=== PATIENT | male | born 1945 | race Caucasian/White ===

== ENCOUNTER 2017-01-13 16:12 | Inpatient (IN) ==
--- NOTE | 2017-01-13 17:05 | EKG Report ---
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
[2017-01-13] MEDS ORDERED: ALUM/MAG/SIMETH/LIDO VISC 1:1 30 ML BOTTLE PO STA (17:06)
[2017-01-13] MEDS ORDERED: NITROGLYCERIN 2% OINT 1 INCH/GM PACK TOP STA (17:06)
[2017-01-13] MEDS ORDERED: ONDANSETRON 4 MG/2 ML VIAL IV STA (17:06)
[2017-01-13] MEDS ORDERED: ASPIRIN 325 MG TABLET PO STA (17:06)
[2017-01-13] MEDS ORDERED: SODIUM CHLORIDE 0.9% 500 ML IV STA (17:06)
[2017-01-13 17:22] LABS: Basophils % 0.3 % (0.0-0.8); Eosinophils % 0.6 % (0.00-10.9); Hematocrit 48.5 VOL% (42.0-52.0); Hemoglobin 16.3 GM/DL (14.0-18.0); Immature Granulocytes % 0.6 %; Immature Granulocytes Absolute 0.02 #; Lymphocytes # 1.1 10*3/uL (1.4-4.0); Mean Corpuscular HGB Conc 33.6 GM/DL (32-36); Mean Corpuscular Hemoglobin 29 PG (27-34); Mean Corpuscular Volume 85.5 FL (87-102); Mean Platelet Volume 10.9 FL (9.6-12.0); Monocytes # 0.5 10*3/uL (0.11-0.8); Monocytes % 12.7 % (1.7-12.7); Neutrophils % 55.8 % (38.7-73.9); Platelet Count 63 T/CUMM (130-400); Red Blood Count 5.67 MC/CUMM (3.8-5.5); Red Cell Distribution Width 14.7 % (9.3-17.3); White Blood Count 3.5 T/CUMM (4-12)
[2017-01-13 17:27] LABS: INR 1.1; PT Patient Result 11.7 SECS
[2017-01-13 17:30] LABS: Albumin 3.2 G/DL (3.4-5.0); Bilirubin,Total 0.6 MG/DL (0.2-1.0); Calcium 8.1 MG/DL (8.5-10.1); Magnesium 2.2 MG/DL (1.8-2.4); Osmolality,Calculated 263.2 MOS/KG (273-304); Potassium 3.7 MMOL/L (3.5-5.1); Total Protein 7.1 G/DL (6.4-8.3)
--- NOTE | 2017-01-13 17:59 | CT Report ---
CT head/brain wo con INDICATION: Unsteady gait The total DLP is 970 mGy*cm. COMPARISON: Noncontrast CT head dated , difficulty walking 03/17/2015 Technique: Serial axial tomographic images of the brain were obtained without the use of intravenous contrast. Dose reduction: This CT exam was performed using one or more of the following dose reduction techniques: Automated exposure control, automated adjustment of the mA and/or KV according to patient size, or use of iterative reconstruction technique. Findings: Mild generalized atrophy is noted with mild prominence of the sulci and cortical volume loss. Periventricular white matter hypodensity changes are noted bilaterally which do not demonstrate mass effect and are nonspecific but favored to represent sequela of chronic microvascular ischemia. There is no evidence of vascular territory infarct or acute intracranial hemorrhage. The carrion-white matter differentiation is generally maintained. There is no hydrocephalus. The basilar cisterns are patent. There is minimal bilateral maxillary and ethmoidal sinus mucosal thickening. Otherwise, the visualized paranasal sinuses, mastoid air cells and middle ear cavities are predominantly clear. The included orbits and their contents appear within normal limits. The visualized osseous structures and overlying soft tissues of the skull and face demonstrate no acute abnormality. IMPRESSION: No acute intracranial abnormality. Nodules atrophy and findings suggestive of sequela of chronic microvascular ischemia. PROCEDURE INTERPRETED AT [facility] DEPARTMENT OF RADIOLOGY Final Report Signed by: Shon Alexandra
[2017-01-13 18:00] LABS: Band Neutrophils 6 % (0-10); Eosinophils 1 % (0-10); Lymphocytes 27 % (20-55); Metamyelocytes 1 %; Segmented Neutrophils 56 % (50-85); Total Cells Counted 100
--- NOTE | 2017-01-13 18:00 | XRay Report ---
Exam: XR chest 1V portable Indication: Cardiomegaly, chest pain Comparison study: Prior chest radiographs 02/16/2016 Findings: Cardiac silhouette is enlarged, similar to prior. Left chest pacemaker device and wire leads. Similar positions. There are prominent perihilar and left upper/lower lobe interstitial opacities which are not significantly changed from prior may represent underlying scarring. Opacities within the left perihilar region and left lung base also appears similar to prior may represent pulmonary fibrosis/atelectasis/scarring changes. Superimposed focal infiltrates could easily be obscured. The heart, mediastinum and bony structures are stable from prior. Impression: Cardiomegaly with suggestion of chronic perihilar and left basilar interstitial opacities may represent underlying pulmonary fibrosis changes versus atelectasis/scarring. Superimposed infectious/inflammatory infiltrates are difficult to exclude. PROCEDURE INTERPRETED AT [facility] DEPARTMENT OF RADIOLOGY Final Report Signed by: Shon Alexandra
[2017-01-13 18:01] LABS: Platelet Estimate Decreased
[2017-01-13 18:02] LABS: Polychromasia Few
[2017-01-13] MEDS ORDERED: NITROGLYCERIN 2% OINT 1 INCH/GM PACK TOP ONE (18:07)
[2017-01-13] MEDS ORDERED: ONDANSETRON 4 MG/2 ML VIAL ONE (18:07)
[2017-01-13] MEDS ORDERED: ASPIRIN 325 MG TABLET ONE (18:07)
[2017-01-13] MEDS ORDERED: ALUM/MAG/SIMETH/LIDO VISC 1:1 30 ML BOTTLE PO ONE (18:08)
--- NOTE | 2017-01-13 18:33 | Emergency Department Note ---
Griselda Conte Hilary, am scribing for, and in the presence of, Jameel Baron MD 17:17. Loraine Conte Charles R, MD, personally performed the services described in this documentation, ascribed by Tia Villalobos in my presence, and it is both accurate and complete [id number] . Arrival - Arrival Chief Complaint: Weakness ED Nursing Triage Note: WEAKNESS AND FATIGUE ONSET THIS PAST TUESDAY, Mode of Arrival: Stretcher Limitations: No Limitations Source: Patient, RN Notes Reviewed Time Seen by Provider: 01/13/17 16:43 - History of Present Illness HPI Narrative: Pt is a 71y/o white male brought into the ED via EMS with c/o "not feeling well " which onset 4 days ago. Pt states that 3 days ago his chest started to hurt and then radiated down to his left arm and it continued to happen 10-15 times. Since that episode pt states he has been feeling weak and has a hard time walking, he states "i want to go this way but my body starts to go that way and i think im going to fall". PTs son is in the room and states that he will be in the middle of a sentence, forget what he is saying and the son will remind him, and then he will continue on with that sentence. His son also states that he hasnt eaten since tuesday. Pt denies diaphoresis, nausea or SOB when the pain came on and he states right now he is pain free. Onset (ago): day(s) Allergies/Adverse Reactions: Allergies Allergy/AdvReac Type Severity Reaction Status Date / Time No Known Allergies Allergy Verified 01/13/17 16:20 Home Medications: Home Medications Medication Instructions Recorded Confirmed Type Aspirin [Ecotrin] 81 mg PO DAILY 03/17/15 03/17/15 History Atorvastatin Calcium 40 mg PO BEDTIME 03/17/15 03/17/15 History Ferrous Sulfate 325 mg PO BID 03/17/15 03/17/15 History Mycophenolate Mofetil Cap 500 mg PO TID 03/17/15 03/17/15 History [Cellcept] Omeprazole [Prilosec] 20 mg PO BEDTIME 03/17/15 03/17/15 History Sirolimus 1 mg PO DAILY 03/17/15 03/17/15 History Tamsulosin HCl 0.4 mg PO BID 03/17/15 03/17/15 History Venlafaxine HCl 75 mg PO BEDTIME 03/17/15 03/17/15 History Fenofibrate [Tricor] 145 mg PO DAILY #30 tablet 03/20/15 Rx Insulin Aspart [NovoLOG FlexPen] 10 unit SUBCUT TID #100 units 03/20/15 Rx Insulin Glargine [Lantus] 50 unit SUBCUT BEDTIME #100 unit 03/20/15 Rx Magnesium Oxide 500 mg PO DAILY #0 03/20/15 03/17/15 Rx predniSONE TAB [PredniSONE] 5 mg PO DAILY #3 tablet 03/20/15 Rx Review of System - Review of System 12 point system: reviewed and no additional remarkable complaints except as stated - Review of System Constitutional: Absent: diaphoresis, fever Respiratory: Absent: cough Cardiovascular: Present: chest pain Gastrointestinal: Absent: abdominal pain, nausea Musculoskeletal: Present: arm pain (left arm pain) Neurological: Present: weakness, confusion, abnormal gait (feel off balance) Medical,Surgical,& Family Hx - Medical History Cardio: History of: Hypertension, PR Psychological: History of: Depression HEENT: History of: Eye Problem, Glaucoma Endocrine: History of: Diabetes Mellitus (IDDM) Respiratory: History of: Obstructive Sleep Apnea, Respiratory Problems ( PULMONARY FIBROSIS) Renal: History of: Renal Failure Gastrointestinal: History of: GERD Musculoskeletal: History of: Back/Neck Problems (spinal stenosis) Other: History of: Cancer (SKIN CANCERS) - Surgical History Cardiac Surgeries: Sugical HX of: Cardiac Catheterization (STENTS PLACED 2006) Thoracic Surgeries: Surgical HX of;: Lobectomy Neurologic Surgeries: Patient denies: Neurologic Surgery HEENT Surgeries: Patient denies: Tonsilectomy & Adenoidectomy Abdominal Surgeries: Surgical HX of: Colonoscopy Patient denies: Appendectomy, Cholecystectomy Reproductive Surgeries: Patient denies;: Breast Surgery, Vasectomy - Family History Family History: Reports;: Family Diabetes, Family Heart Disease (father, brother , sister), Family Hypertension Denies;: Family Cancer, Family Stroke - Social History Smoking Status: Former smoker Exam Vital Signs: Vital Signs Temperature 98.2 F 01/13/17 16:13 Pulse Rate 96 H 01/13/17 16:13 Respiratory Rate 18 01/13/17 16:13 Blood Pressure 142/90 01/13/17 16:13 O2 Sat by Pulse Oximetry 99 01/13/17 16:13 - General General appearance: alert, in no apparent distress, other (Dishoveled, dirty looking) - Head Head exam: Present: atraumatic, normocephalic - Eye Eye exam: Present: normal appearance, PERRL, EOMI - ENT ENT exam: Present: mucous membranes moist, TM's normal bilaterally. Absent: mucous membranes dry - Neck Neck exam: Present: full ROM, trachea midline. Absent: tenderness - Chest Chest inspection: Present: symmetric chest wall rise. Absent: tenderness - Respiratory Respiratory exam: Present: normal lung sounds bilaterally. Absent: respiratory distress - Cardiovascular Cardiovascular exam: Present: regular rate, normal rhythm, normal heart sounds. Absent: murmur, rubs, gallop - Abdominal Exam Abdominal exam: Present: soft, normal bowel sounds. Absent: distention, tenderness - Extremities Exam Extremities exam: Present: full ROM. Absent: tenderness - Back Exam Back exam: Present: full ROM. Absent: tenderness - Neurological Exam Neurological exam: Present: alert, oriented X3, CN II-XII intact. Absent: motor sensory deficit - Psychiatric Psychiatric exam: Present: normal mood, flat affect (flat and blunt affect) - Skin Skin exam: Present: warm, dry, intact, normal color. Absent: rash Course - Consultations Consultation #1: Hospitalist will admit patient Time: 18:29 Results - Labs CBC & BMP: 01/13/17 16:49 01/13/17 16:49 Lab Results: I have reviewed the patients labs Critical Care Time Critical Care Time: Yes Total Critical Care Time: 60 Disposition Clinical Impression: Near syncope, Nausea vomiting and diarrhea, Thrombocytopenia, Generalized weakness, Unsteady gait, Elevated troponin, Atypical chest pain, Hyponatremia Case discussed with: patient, patient's family Condition: Guarded Time of Disposition: 18:32
--- NOTE | 2017-01-13 18:35 | Hospitalist History & Physical ---
Assessment and Plan (1) Diabetes mellitus, insulin dependent (IDDM), uncontrolled Status: Acute Assessment and plan: We will obtain HGA1C, start accuchecks with ss coverage, and consult hematology nurse educator. Current Visit: No Qualifiers: Diabetes mellitus complication status: with unspecified complications Qualified Code(s): E10.8 - Type 1 diabetes mellitus with unspecified complications; E10.65 - Type 1 diabetes mellitus with hyperglycemia (2) Near syncope Status: Acute Assessment and plan: Will obtain MRI brain in AM. Consult neurology; complete full syncope work-up. Current Visit: Yes (3) Elevated troponin Status: Acute Assessment and plan: Will obtain serial cardiac enzymes ; if positive; will consult cardiology. Current Visit: Yes (4) Hyponatremia Status: Acute Assessment and plan: We will carefully correct; obtain serial sodium levels. Current Visit: Yes History of Present Illness Chief complaint: altered mental status History of present illness: This is a very unfortunate 71 year old male that presented to the ED this afternoon for evaluation of altered mental status and chest pain. He has a rather impressive medical history significant for hypertension, myocardial infarction, pulmonary fibrosis, depression, insulin-dependent diabetes mellitus , glaucoma, obstructive sleep apnea, skin cancer, and skin cancer. He has a surgical history of lung transplantation. he was brought to the ED this afternoon by his family, who reports an acute change in his mental status. The reported the onset of symptoms on Tuesday; when he had multiple episodes of diarrhea. On Tuesday; he was reported to have a decrease in appetite and changes in both his gait and mental status. In addition, he started experiencing chest pain with radiation to his left arm at that time. His symptoms became very severe this morning. He was grossly confused and incontinent of both bowel and bladder. They became alarmed and brought him to the ED for further evaluation. At the time of ED presentation, he was found to be altered and disheveled. Labs were obtained. His sodium was grossly abnormal at 127. His renal function was less than favorable with a BUN of 30 and creatinine of 1.90. His WBC's were noted at 3.5 and his platelets were 63. His troponin was mildly elevated at 0.139 and BNP was noted at 597. CT Head revealed no acute intracranial processes. Chest radiograph revealed cardiomegaly and possible opacities/ infiltrates/pulmonary scarring. After brief discussion with both Dr. Baron and Dr. Solano, the patient will be admitted to the hospitalist services. He will be admitted to critical care. We will consult neurology to assist. Home Medications Medication Instructions Recorded Confirmed Type Aspirin [Ecotrin] 81 mg PO QAM 03/17/15 01/13/17 History Atorvastatin Calcium 40 mg PO BEDTIME 03/17/15 01/13/17 History Ferrous Sulfate 325 mg PO BID 03/17/15 01/13/17 History Mycophenolate Mofetil Cap 500 mg PO TID 03/17/15 01/13/17 History [Cellcept] Sirolimus 1 mg PO BID 03/17/15 01/13/17 History Venlafaxine HCl 75 mg PO BEDTIME 03/17/15 01/13/17 History Insulin Glargine [Lantus] 50 unit SUBCUT BEDTIME #100 unit 03/20/15 01/13/17 Rx Insulin Aspart [NovoLOG FlexPen] 10 unit SUBCUT TID 01/13/17 01/13/17 History Magnesium Oxide 1,000 mg PO BID 01/13/17 01/13/17 History predniSONE TAB [PredniSONE] 5 mg PO QAM 01/13/17 01/13/17 History Allergies Allergy/AdvReac Type Severity Reaction Status Date / Time No Known Allergies Allergy Verified 01/13/17 16:20 Medical,Surgical,& Family Hx - Medical History Cardio: History of: Hypertension, [place] Psychological: History of: Depression HEENT: History of: Eye Problem, Glaucoma Endocrine: History of: Diabetes Mellitus (IDDM) Respiratory: History of: Obstructive Sleep Apnea, Respiratory Problems ( PULMONARY FIBROSIS) Renal: History of: Renal Failure Gastrointestinal: History of: GERD Musculoskeletal: History of: Back/Neck Problems (spinal stenosis) Other: History of: Cancer (SKIN CANCERS) - Surgical History Cardiac Surgeries: Sugical HX of: Cardiac Catheterization (STENTS PLACED 2006) Thoracic Surgeries: Surgical HX of;: Lobectomy Neurologic Surgeries: Patient denies: Neurologic Surgery HEENT Surgeries: Patient denies: Tonsilectomy & Adenoidectomy Abdominal Surgeries: Surgical HX of: Colonoscopy Patient denies: Appendectomy, Cholecystectomy Reproductive Surgeries: Patient denies;: Breast Surgery, Vasectomy - Family History Family History: Reports;: Family Diabetes, Family Heart Disease (father, brother , sister), Family Hypertension Denies;: Family Cancer, Family Stroke - Social History Smoking Status: Former smoker Have you smoked in the last 12 months: No Frequency of Alcohol Use: None Type of Drug Use: None Marital Status: Single Lives With:: Spouse Functional capacity: independent ambulation ROS unobtainable: due to mental status Exam - Constitutional Vitals: Period Temp Pulse Resp BP Sys/[place] Pulse Ox Last 24 Hr 98.2 F 96 18 142/90 99 General appearance: normal weight, disheveled - Head Head exam: Present: normal inspection, normocephalic, atraumatic - Eye Eye exam: Present: EOMI. Absent: conjunctival injection, nystagmus Pupils: Present: MARYBETH, normal accommodation - ENT ENT exam: Present: normal exam, normal external ear exam, normal oropharynx - Neck Neck exam: Present: normal inspection - Respiratory Respiratory exam: Present: clear to auscultation bilaterally. Absent: rales, rhonchi, stridor, wheezes - Cardiovascular Cardiovascular exam: Present: regular rate and rhythm. Absent: carotid bruit, diastolic murmur, gallop, rubs, tachycardia - GI/Abdominal GI/Abdominal exam: Present: normal bowel sounds, soft - Extremities Exam Extremities exam: Present: normal inspection, normal capillary refill, full ROM. Absent: edema - Back Exam Back exam: Present: normal inspection - Neurological Exam Neurological exam: Present: alert, altered - Psychiatric Psychiatric exam: Present: normal affect, normal mood - Skin Skin exam: Present: warm, dry Results - Labs CBC & BMP: 01/13/17 16:49 01/13/17 16:49 Lab Results: I have reviewed the past 24 hour labs Quality Measures - VTE Deep Vein Thrombosis/Pulmonary Embolism Present on Admission: No
[2017-01-13] MEDS ORDERED: PANTOPRAZOLE 40 MG VIAL IV SCH (20:53)
[2017-01-13] MEDS ORDERED: ALBUTEROL 2.5 MG/3 ML NEB RESP TX PRN (20:53)
[2017-01-13] MEDS ORDERED: ACETAMINOPHEN 325 MG TABLET PO PRN (20:53)
[2017-01-13] MEDS ORDERED: ONDANSETRON 4 MG/2 ML VIAL IV PRN (20:53)
[2017-01-13] MEDS: SODIUM CHLORIDE 0.9% 1,000 ML IV SCH (21:24)
[2017-01-13] MEDS ORDERED: DEXTROSE 50% 25 GM/50 ML VIAL IV PRN (21:35)
[2017-01-13] MEDS ORDERED: GLUCAGON 1 MG VIAL IM PRN (21:35)
[2017-01-13 21:55] LABS: Magnesium 2.2 MG/DL (1.8-2.4)
[2017-01-13 21:57] LABS: Ammonia < 10 UMOL/L (11-32)
[2017-01-13] MEDS ORDERED: INSULIN REGULAR 100 UNIT/ML SUBCUT ONE (21:57)
[2017-01-14 01:22] LABS: Albumin 2.7 G/DL (3.4-5.0); Bilirubin,Total 0.4 MG/DL (0.2-1.0); Calcium 7.2 MG/DL (8.5-10.1); Magnesium 2.1 MG/DL (1.8-2.4); Osmolality,Calculated 277.4 MOS/KG (273-304); Potassium 3.9 MMOL/L (3.5-5.1); Risk Ratio 9.58; Thyroid Stimulating Hormone 1.98 uIU/ml (0.358-3.74); Total Protein 5.9 G/DL (6.4-8.3); VLDL CHOLESTEROL 66.4 MG/DL
[2017-01-14 01:25] LABS: Eosinophils % 1.3 % (0.00-10.9); Hematocrit 45.2 VOL% (42.0-52.0); Hemoglobin 14.8 GM/DL (14.0-18.0); Immature Granulocytes % 0.9 %; Immature Granulocytes Absolute 0.02 #; Lymphocytes # 0.9 10*3/uL (1.4-4.0); Lymphocytes % 38.9 % (21.2-54.2); Mean Corpuscular HGB Conc 32.7 GM/DL (32-36); Mean Corpuscular Hemoglobin 29 PG (27-34); Mean Corpuscular Volume 87.1 FL (87-102); Mean Platelet Volume 10.8 FL (9.6-12.0); Monocytes # 0.3 10*3/uL (0.11-0.8); Monocytes % 13.5 % (1.7-12.7); Neutrophils % 45.4 % (38.7-73.9); Platelet Count 61 T/CUMM (130-400); Red Blood Count 5.19 MC/CUMM (3.8-5.5); Red Cell Distribution Width 14.7 % (9.3-17.3); White Blood Count 2.3 T/CUMM (4-12)
[2017-01-14 03:48] LABS: Band Neutrophils 6 % (0-10); Eosinophils 2 % (0-10); Hypochromasia Slight; Lymphocytes 32 % (20-55); Metamyelocytes 6 %; Myelocytes 2 %; Ovalocytes Few; Platelet Estimate Decreased; Segmented Neutrophils 34 % (50-85); Total Cells Counted 100
[2017-01-14] MEDS: SODIUM CHLORIDE 0.9% 1,000 ML IV SCH ×2 (05:28→13:55)
[2017-01-14] MEDS: INSULIN REGULAR 100 UNIT/ML SUBCUT SCH ×4 (08:56→21:00)
--- NOTE | 2017-01-14 12:17 | Hospitalist Progress Note ---
Assessment and Plan (1) Nausea vomiting and diarrhea Status: Acute Assessment and plan: The patient's nausea vomiting and diarrhea have resolved. The hyponatremia which led to altered mental status has improved. The patient is ready for transfer to the floor. Will restart the patient's immunosuppressant medications and recheck electrolytes and CBC in the morning. Current Visit: Yes (2) Status post lung transplantation Status: Acute Current Visit: No (3) Generalized weakness Status: Acute Current Visit: Yes (4) Hyponatremia Status: Acute Current Visit: Yes Hospitalist: Subjective Interval history: The patient is awake alert and oriented. He says his previous confusion has resolved. Electrolytes are improved after hydration with normal saline. The patient is ready for transfer to the floor. Exam - Constitutional Vitals: Period Temp Pulse Resp BP Sys/[place] Pulse Ox Last 24 Hr 97.9 F-99.3 F 81-101 14-26 119-161/69-95 90-100 General appearance: no acute distress - Respiratory Respiratory exam: Present: clear to auscultation bilaterally - Cardiovascular Cardiovascular exam: Present: regular rate and rhythm - GI/Abdominal GI/Abdominal exam: Present: normal bowel sounds Results - Labs CBC & BMP: 01/14/17 00:38 01/14/17 00:38 Lab Results: I have reviewed the past 24 hour labs Quality Measures - VTE Deep Vein Thrombosis/Pulmonary Embolism Present on Admission: No
[2017-01-14] MEDS: ASPIRIN EC 81 MG TABLET PO SCH (16:24)
[2017-01-14] MEDS: predniSONE 5 MG TABLET PO SCH (16:25)
[2017-01-14] MEDS: MYCOPHENOLATE MOFETIL 250 MG CAPSULE PO SCH ×2 (16:25→20:59)
[2017-01-14] MEDS: ATORVASTATIN 40 MG TABLET PO SCH (20:58)
[2017-01-15] MEDS: SODIUM CHLORIDE 0.9% 1,000 ML IV SCH ×4 (00:14→13:19)
--- NOTE | 2017-01-15 00:16 | ECHO Report ---
Jameel Pittman Exam Date: 01/14/2017 08:56 Referring Physician: Technologist: Rianna Rose RDCS Age: 71 Ht (in): 70 Wt (lb): 198 Gender: M Exam Location: [facility] Echo Indications: Altered mental status, IDDM, Chest pain, unspecified, Elevated troponin, Hyponatremia, Essential (primary) hypertension, ROCK, CAD with previous stents, Presence of cardiac pacemaker BP: 122 / 76 HR: 82 Rhythm: Sinus Technical Quality: IMPRESSIONS Left ventricular ejection fraction is estimated at 40-45 %. Mild concentric left ventricular hypertrophy with mild diastolic dysfunction. Mild bilateral atrial enlargement. Mildly thickened mitral valve with mild mitral valve regurgitation. Mild aortic valve sclerosis without stenosis. Mild tricuspid valve regurgitation. MEASUREMENTS (Male / Female) Normal Values 2D ECHO LV Diastolic Diameter PLAX 5.1 cm 4.2 - 5.9 / 3.9 - 5.3 cm LV Systolic Diameter PLAX 4.0 cm LV Fractional Shortening PLAX 22.3 % IVS Diastolic Thickness 1.3 cm 0.6 - 1.0 / 0.6 - 0.9 cm LVPW Diastolic Thickness 1.3 cm 0.6 - 1.0 / 0.6 - 0.9 cm RV Internal Dim ED PLAX 3.1 cm Aortic Root Diameter 3.2 cm LA Systolic Diameter LX 4.1 cm 3.0 - 4.0 / 2.7 - 3.8 cm DOPPLER TR Peak Velocity 307.0 cm/s TR Peak Gradient 37.7 mmHg FINDINGS Left Ventricle Normal left ventricular cavity size. Mild concentric left ventricular hypertrophy with mild diastolic dysfunction. Left ventricular ejection fraction is estimated at 40-45 %. Right Ventricle Normal right ventricular size. Catheter/pacemaker wire visualized in the right ventricle. Right Atrium Mildly increased right atrial size. Catheter/pacemaker wire in the right atrial cavity. Left Atrium Mildly increased left atrial size. Mitral Valve Mildly thickened mitral valve with mild mitral valve regurgitation. Aortic Valve Mild aortic valve sclerosis without stenosis. Tricuspid Valve Morphologically normal tricuspid valve. Mild tricuspid valve regurgitation. Tricuspid regurgitation velocities suggest a PAP of 48 mmHg. Pulmonic Valve Morphologically normal pulmonic valve without significant stenosis. There is no pulmonic regurgitation. Pericardium Normal pericardium without effusion. Aorta Normal ascending aorta dimension. Alfredo Trivedi (Electronically Signed) Final Date: 15 Jan 2017 00:15
[2017-01-15 09:21] LABS: Calcium 7.1 MG/DL (8.5-10.1); Magnesium 2.1 MG/DL (1.8-2.4); Osmolality,Calculated 279.8 MOS/KG (273-304); Potassium 3.4 MMOL/L (3.5-5.1)
[2017-01-15] MEDS: INSULIN REGULAR 100 UNIT/ML SUBCUT SCH ×4 (09:33→21:22)
[2017-01-15] MEDS: ASPIRIN EC 81 MG TABLET PO SCH (09:34)
[2017-01-15] MEDS: predniSONE 5 MG TABLET PO SCH (09:34)
[2017-01-15] MEDS: MYCOPHENOLATE MOFETIL 250 MG CAPSULE PO SCH ×3 (09:34→21:18)
--- NOTE | 2017-01-15 10:59 | XRay Report ---
Referring Physician: Beck Porter MD Exam: XR chest 1V portable Date: January 15, 2017 at 10:14 AM Reason: Fever Comparison: Chest one view portable January 13, 2017 Findings: The cardiac silhouette is again enlarged, and a cardiac pacing device is in place. There are scattered opacities throughout both lungs, mainly on the left. This likely represents pneumonia, pulmonary edema and possibly scarring. No pneumothorax is identified, but there may be mild left pleural fluid. The osseous structures appear stable. Impression: There has been interval development of scattered opacities within the right lung, and there are persistent prominent opacities within the left lung. This likely represents pneumonia, pulmonary edema and possibly scarring. Follow-up is recommended to confirm resolution and exclude an underlying pulmonary nodule. PROCEDURE INTERPRETED AT [facility] DEPARTMENT OF RADIOLOGY Final Report Signed by: Dr. Veronique Monet
--- NOTE | 2017-01-15 12:15 | Hospitalist Progress Note ---
Assessment and Plan - Time spent with patient Time spent with patient: Greater than 30 minutes (1) Fever Status: Acute Assessment and plan: fever in association with increased sob and evolving infiltrates on CXR. Will begin presumptive tx of pneumonia with Levaquin and Rocephin. Bcx and sputum Cx are pending. Will CT chest today to better identify infiltrates. Current Visit: Yes (2) Status post lung transplantation Status: Acute Assessment and plan: anti-rejection meds restarted. Dr Petty, established hand packer/packager consulted Current Visit: No (3) Orthostatic hypotension Status: Acute Assessment and plan: resolved Current Visit: No (4) Diabetes mellitus, insulin dependent (IDDM), uncontrolled Status: Chronic Current Visit: Yes Qualifiers: Diabetes mellitus complication status: with unspecified complications Qualified Code(s): E10.8 - Type 1 diabetes mellitus with unspecified complications; E10.65 - Type 1 diabetes mellitus with hyperglycemia (5) Nausea vomiting and diarrhea Status: Resolved Current Visit: Yes Hospitalist: Subjective Interval history: Pt reports chills last night. c/o increased sob today Exam - Constitutional Vitals: Period Temp Pulse Resp BP Sys/[place] Pulse Ox Last 24 Hr 97.6 F-102.5 F 83-107 16-30 127-153/68-101 80-95 General appearance: no acute distress - Head Head exam: Present: normal inspection, normocephalic, atraumatic - Eye Eye exam: Present: EOMI Pupils: Present: MARYBETH - ENT ENT exam: Present: normal exam - Neck Neck exam: Present: normal inspection. Absent: lymphadenopathy - Respiratory Respiratory exam: Present: rhonchi, wheezes (EBBS with coarse rhonchi and wheezes). Absent: accessory muscle use, chest wall tenderness - Cardiovascular Cardiovascular exam: Present: regular rate and rhythm - GI/Abdominal GI/Abdominal exam: Present: normal bowel sounds. Absent: distended, tenderness - Extremities Exam Extremities exam: Present: normal inspection, full ROM - Neurological Exam Neurological exam: Present: alert, oriented X3 - Psychiatric Psychiatric exam: Present: normal affect, normal mood - Skin Skin exam: Present: normal color, warm, dry Results - Labs CBC & BMP: 01/14/17 00:38 01/15/17 08:13 - Diagnostic Findings Procedure: Chest x-ray: report reviewed by me Quality Measures - VTE Deep Vein Thrombosis/Pulmonary Embolism Present on Admission: No
--- NOTE | 2017-01-15 13:24 | CT Report ---
Referring physician: Beck Porter MD EXAM: CT chest without contrast DATE: January 15, 2017 COMPARISON: Chest one view portable January 15, 2017, chest and lateral April 23, 2010 REASON: Abnormal chest x-ray TECHNIQUE: Axial images of the chest were obtained without the use of IV contrast. Coronal and sagittal reformatted images were also provided. Total DLP is 448.2 mGy*cm. FINDINGS: Vasculature/Heart: The thoracic aorta is normal in size. There is mild scattered calcified plaque at the arteries, including at the coronary arteries. There is cardiomegaly, and a cardiac pacing device is in place. The pulmonary arteries are unremarkable as visualized. Lymph nodes: There are a few borderline prominent mediastinal lymph nodes. An AP window lymph node on image 41 measures 1 cm in short axis diameter. No suspicious axillary adenopathy is seen. No obvious hilar adenopathy is identified. There are a few small densities at the mediastinum which could represent calcified mediastinal lymph nodes or surgical clips. Other mediastinum: There is mediastinal shift to the left due to volume loss at the left lung. Lungs: There is mild bilateral pleural fluid, right greater than left. No pneumothorax is identified. There is volume loss at the left lung which has been present to some degree over multiple prior exams. There is also prominent centrilobular emphysema/honeycombing involving the majority of the left lung. Interlobular septal thickening is present bilaterally, and there are scattered opacities within both lungs. Many of these opacities within the right lung have a groundglass appearance. This likely represents pulmonary edema and atelectasis with chronic fibrosis involving the majority of the left lung. However, there could also be superimposed pneumonia. No obvious suspicious pulmonary nodule is seen, but the above-mentioned findings make evaluation for a pulmonary nodule difficult. Bones: There is degenerative change and mild scoliosis at the thoracic spine. No acute osseous process is seen. Chest wall: Unremarkable. Upper abdomen: The right hepatic flexure extends anterior to the right hepatic lobe. No acute process is identified within the upper abdomen. IMPRESSION: 1. There is interlobular septal thickening throughout both lungs and scattered opacities within both lungs. Prominent centrilobular emphysema/honeycombing is also seen at the left lung, and there is chronic volume loss at the left lung. This is most consistent with pulmonary edema and atelectasis with chronic fibrosis/interstitial lung disease involving the majority of the left lung. Superimposed pneumonia is not excluded. 2. Mild bilateral pleural fluid, right greater than left. 3. Cardiomegaly. 4. Nonspecific borderline prominent mediastinal lymph nodes. The CT exam was performed using one or more of the following dose reduction techniques: Automated exposure control and adjustment of the mA and/or kV according to patient size. PROCEDURE INTERPRETED AT [facility] DEPARTMENT OF RADIOLOGY Final Report Signed by: Dr. Veronique Monet
[2017-01-15] MEDS: cefTRIAXone 1,000 MG in SODIUM CHLORIDE 0.9% 100 ML IV SCH (13:56)
[2017-01-15] MEDS: LEVOFLOXACIN INJ 750 MG in PREMIX 1 EACH IV SCH (15:36)
[2017-01-15] MEDS: ATORVASTATIN 40 MG TABLET PO SCH (21:18)
[2017-01-16] MEDS ORDERED: LABETALOL 20 MG/4 ML SYRINGE IV PRN (00:35)
[2017-01-16] MEDS: ALBUTEROL/IPRATROPIUM 3 ML NEB RESP TX PRN ×3 (01:11→21:17)
[2017-01-16 04:27] LABS: Basophils % 0.4 % (0.0-0.8); Eosinophils % 0.2 % (0.00-10.9); Hematocrit 41.3 VOL% (42.0-52.0); Hemoglobin 14.3 GM/DL (14.0-18.0); Immature Granulocytes % 0.5 %; Immature Granulocytes Absolute 0.03 #; Lymphocytes # 1.1 10*3/uL (1.4-4.0); Lymphocytes % 19.3 % (21.2-54.2); Mean Corpuscular HGB Conc 34.6 GM/DL (32-36); Mean Corpuscular Hemoglobin 29 PG (27-34); Mean Corpuscular Volume 82.4 FL (87-102); Mean Platelet Volume 10.6 FL (9.6-12.0); Monocytes # 0.7 10*3/uL (0.11-0.8); Monocytes % 12.6 % (1.7-12.7); Neutrophils # 3.8 10*3/uL (1.4-7.4); Platelet Count 46 T/CUMM (130-400); Red Blood Count 5.01 MC/CUMM (3.8-5.5); Red Cell Distribution Width 14.9 % (9.3-17.3); White Blood Count 5.7 T/CUMM (4-12)
[2017-01-16 04:45] LABS: Albumin 2.8 G/DL (3.4-5.0); Calcium 7.8 MG/DL (8.5-10.1); Osmolality,Calculated 269.8 MOS/KG (273-304); Phosphorous 1.4 MG/DL (2.5-4.9); Potassium 3.7 MMOL/L (3.5-5.1)
[2017-01-16 05:53] LABS: Anisocytosis 1+; Band Neutrophils 2 % (0-10); Eosinophils 2 % (0-10); Lymphocytes 19 % (20-55); Microcytosis 1+; Platelet Estimate Decreased; Segmented Neutrophils 67 % (50-85); Total Cells Counted 100
[2017-01-16] MEDS: predniSONE 5 MG TABLET PO SCH (08:35)
[2017-01-16] MEDS: ASPIRIN EC 81 MG TABLET PO SCH (08:35)
[2017-01-16] MEDS: MYCOPHENOLATE MOFETIL 250 MG CAPSULE PO SCH ×3 (08:35→22:16)
[2017-01-16] MEDS: INSULIN REGULAR 100 UNIT/ML SUBCUT SCH ×4 (08:35→22:16)
--- NOTE | 2017-01-16 08:36 | Pulmonology Consult Note ---
Assessment and Plan (1) Idiopathic pulmonary fibrosis Status: Acute Assessment and plan: Patient has a history of IPF and has had a right lung transplant. He has done well with his transplant. Current Visit: Yes (2) Pneumonia Status: Acute Assessment and plan: The patient does have a patchy infiltrate in the right lung and may have a mild pneumonia. He has to be considered immunosuppressed. Current Visit: Yes (3) Status post lung transplantation Status: Acute Assessment and plan: The patient has had a right lung transplant and is doing fairly well with this. Current Visit: No (4) Diabetes mellitus, insulin dependent (IDDM), uncontrolled Status: Chronic Assessment and plan: The patient's glucoses around 200. Current Visit: Yes Qualifiers: Diabetes mellitus complication status: with unspecified complications Qualified Code(s): E10.8 - Type 1 diabetes mellitus with unspecified complications; E10.65 - Type 1 diabetes mellitus with hyperglycemia (5) Fever Status: Acute Assessment and plan: The patient has had some fever and weakness and confusion and looks like he has some mild pneumonia. Current Visit: Yes History of Present Illness Chief complaint: Shortness of breath History of present illness: Mr. Pittman is a 71 year old white male that has been followed by Dr. Mosher with IPF and he has had a previous right lung transplant about 10 years ago. He also has a history of diabetes, hypertension, coronary artery disease, obstructive sleep apnea, and glaucoma. He came in several days ago because of weakness and confusion and vague chest aching. He apparently had chills and just did not feel very well. He did not seem to have worsening shortness of breath at that time. He says he is not coughing up a lot of sputum. He feels like his shortness of breath has gotten worse while in the hospital. He did have mild hyponatremia and mild renal insufficiency. Yesterday he did get a little more short of breath and he has developed a little more infiltrate on the right lung. There was a question whether this could be some mild pulmonary edema. His fluids were cut back at that time. He is getting some IV antibiotics. He says he feels a little better today. Home Medications Medication Instructions Recorded Confirmed Type Aspirin [Ecotrin] 81 mg PO QAM 03/17/15 01/13/17 History Atorvastatin Calcium 40 mg PO BEDTIME 03/17/15 01/13/17 History Ferrous Sulfate 325 mg PO BID 03/17/15 01/13/17 History Mycophenolate Mofetil Cap 500 mg PO TID 03/17/15 01/13/17 History [Cellcept] Sirolimus 1 mg PO BID 03/17/15 01/13/17 History Venlafaxine HCl 75 mg PO BEDTIME 03/17/15 01/13/17 History Insulin Glargine [Lantus] 50 unit SUBCUT BEDTIME #100 unit 03/20/15 01/13/17 Rx Insulin Aspart [NovoLOG FlexPen] 10 unit SUBCUT TID 01/13/17 01/13/17 History Magnesium Oxide 1,000 mg PO BID 01/13/17 01/13/17 History predniSONE TAB [PredniSONE] 5 mg PO QAM 01/13/17 01/13/17 History Allergies Allergy/AdvReac Type Severity Reaction Status Date / Time No Known Allergies Allergy Verified 01/13/17 16:20 - Constitutional Constitutional: Present: chills, fatigue, weakness. Absent: fever(s), weight loss - EENT Eyes: Absent: loss of vision Ears: Absent: decreased hearing Nose, mouth and throat: Absent: dysphagia, headache(s), sinus pressure - Cardiovascular Cardiovascular: Present: chest pain at rest, dyspnea. Absent: edema, orthopnea , PND - Respiratory Respiratory: Present: cough, dyspnea, wheezing. Absent: pain on inspiration, change in phlegm color - Gastrointestinal Gastrointestinal: Absent: abdominal pain, change in bowel habits, dysphagia, nausea, vomiting - Genitourinary Genitourinary: Absent: difficulty urinating, dysuria, urinary frequency - Musculoskeletal Musculoskeletal: Absent: arthralgias, myalgias - Neurological Neurological: Present: confusion. Absent: behavioral changes, focal weakness Exam (Pulmonay) H&P - Constitutional Vitals: Period Temp Pulse Resp BP Sys/[place] Pulse Ox Last 24 Hr 96.9 F-99 F 92-127 16-24 143-199/76-117 90-100 General appearance: normal weight, no acute distress (He looks like he is breathing comfortably on oxygen now.) - Head Head exam: Present: normal inspection, normocephalic - Eye Eye exam: Present: EOMI. Absent: scleral icterus Pupils: Present: MARYBETH - ENT ENT exam: Present: normal exam - Neck Neck exam: Present: normal inspection. Absent: lymphadenopathy, thyromegaly - Respiratory Respiratory exam: Present: rales (He has inspiratory crackles throughout the left lung.), rhonchi, wheezes (He has some mild wheezing and rhonchi in the right lung.). Absent: accessory muscle use - Cardiovascular Cardiovascular exam: Present: regular rate and rhythm. Absent: gallop, systolic murmur - GI/Abdominal GI/Abdominal exam: Present: normal bowel sounds, soft. Absent: organomegaly, tenderness - Extremities Exam Extremities exam: Absent: calf tenderness, edema - Neurological Exam Neurological exam: Present: alert, oriented X3, CN II-XII intact - Psychiatric Psychiatric exam: Present: normal affect - Skin Skin exam: Present: warm, dry Medical,Surgical,& Family Hx - Medical History Cardio: History of: Hypertension, [place], Pacemaker Psychological: History of: Depression HEENT: History of: Eye Problem, Glaucoma Endocrine: History of: Diabetes Mellitus (IDDM) Respiratory: History of: Obstructive Sleep Apnea, Respiratory Problems ( PULMONARY FIBROSIS) Renal: History of: Renal Failure Gastrointestinal: History of: GERD Musculoskeletal: History of: Back/Neck Problems (spinal stenosis) Other: History of: Cancer (SKIN CANCERS) - Surgical History Cardiac Surgeries: Sugical HX of: Cardiac Catheterization (STENTS PLACED 2006) Thoracic Surgeries: Surgical HX of;: Organ Transplant (LUNG TANSPLANT IN 2006), Lobectomy Neurologic Surgeries: Patient denies: Neurologic Surgery HEENT Surgeries: Patient denies: Tonsilectomy & Adenoidectomy Abdominal Surgeries: Surgical HX of: Colonoscopy Patient denies: Appendectomy, Cholecystectomy Reproductive Surgeries: Patient denies;: Breast Surgery, Vasectomy - Family History Family History: Reports;: Family Diabetes, Family Heart Disease (father, brother , sister), Family Hypertension Denies;: Family Cancer, Family Stroke - Social History Smoking Status: Former smoker Frequency of Alcohol Use: None Type of Drug Use: None Results - Labs CBC & BMP: 01/16/17 03:23 01/16/17 03:23 - Diagnostic Findings Procedure: Chest x-ray: image reviewed by me, report reviewed by me (Chest x- ray shows pulmonary fibrosis in the left lung. The transplanted lung does have slight increased markings from before.), CT - chest: image reviewed by me, report reviewed by me (The CT scan shows honeycomb lung on the left. The right transplanted lung does have some slight patchy infiltrates now.) Quality Measures - VTE Deep Vein Thrombosis/Pulmonary Embolism Present on Admission: No
--- NOTE | 2017-01-16 11:11 | Hospitalist Progress Note ---
Assessment and Plan - Time spent with patient Time spent with patient: Greater than 30 minutes (1) Fever Status: Acute Assessment and plan: Afebrile now for 24 hrs. On presumptive tx for pneumonia. Cultures pending Current Visit: Yes (2) Status post lung transplantation Status: Acute Assessment and plan: anti-rejection meds restarted. Pulmonary consulted. Known hx of IPF Current Visit: No (3) Orthostatic hypotension Status: Acute Assessment and plan: resolved Current Visit: No (4) Diabetes mellitus, insulin dependent (IDDM), uncontrolled Status: Chronic Current Visit: Yes Qualifiers: Diabetes mellitus complication status: with unspecified complications Qualified Code(s): E10.8 - Type 1 diabetes mellitus with unspecified complications; E10.65 - Type 1 diabetes mellitus with hyperglycemia (5) Nausea vomiting and diarrhea Status: Resolved Current Visit: Yes (6) Hyponatremia Status: Acute Assessment and plan: Improved with IV NS but redeveloped upon dc of IVF. Pt does not appear to be volume contracted currently. Osmolality studies pending Current Visit: Yes Hospitalist: Subjective Interval history: Feels "a little better" today. Still more sob than usual. Exam - Constitutional Vitals: Period Temp Pulse Resp BP Sys/[place] Pulse Ox Last 24 Hr 96.9 F-99 F 92-127 16-24 143-199/76-117 90-100 General appearance: no acute distress - Head Head exam: Present: normal inspection, normocephalic, atraumatic - Eye Eye exam: Present: EOMI. Absent: conjunctival injection, scleral icterus Pupils: Present: MARYBETH, normal accommodation - ENT ENT exam: Present: normal exam - Neck Neck exam: Present: normal inspection. Absent: lymphadenopathy - Respiratory Respiratory exam: Present: rhonchi, other (improved air movement). Absent: accessory muscle use - Cardiovascular Cardiovascular exam: Present: regular rate and rhythm. Absent: gallop, rubs - GI/Abdominal GI/Abdominal exam: Present: normal bowel sounds. Absent: distended, guarding, tenderness - Extremities Exam Extremities exam: Present: normal capillary refill, full ROM - Neurological Exam Neurological exam: Present: alert, oriented X3 - Psychiatric Psychiatric exam: Present: normal affect, normal mood - Skin Skin exam: Present: normal color, warm, dry Results - Labs CBC & BMP: 01/16/17 03:23 01/16/17 03:23 - Diagnostic Findings Procedure: CT - chest: report reviewed by me Quality Measures - VTE Deep Vein Thrombosis/Pulmonary Embolism Present on Admission: No
[2017-01-16] MEDS: cefTRIAXone 1,000 MG in SODIUM CHLORIDE 0.9% 100 ML IV SCH (12:02)
[2017-01-16] MEDS: LEVOFLOXACIN INJ 750 MG in PREMIX 1 EACH IV SCH (13:15)
[2017-01-16] MEDS ORDERED: VENLAFAXINE 75 MG TABLET PO SCH (21:00)
[2017-01-16] MEDS: ATORVASTATIN 40 MG TABLET PO SCH (22:15)
[2017-01-17 05:57] LABS: Albumin 2.7 G/DL (3.4-5.0); Calcium 7.8 MG/DL (8.5-10.1); Osmolality,Calculated 276.2 MOS/KG (273-304); Phosphorous 2.5 MG/DL (2.5-4.9); Potassium 3.7 MMOL/L (3.5-5.1)
--- NOTE | 2017-01-17 07:53 | Pulmonology Progress Note ---
Pulmonary - PN: Subj Interval history: This 71-year-old white male is a patient that I followed for a number of years with a previous right lung transplant. He is chronically on immunosuppressant drugs. He came in with fever of 102 and patchy infiltrates primarily in the right lung. He has severe fibrosis in his remaining [place] left long. He also had signs of pulmonary edema, and elevated BNP of 560, and mild systolic congestive heart failure with ejection fraction of 40-45%. I think he is still a little ahead on fluid. Will bump with Lasix. He does have a history of hyponatremia in the past so we will have to watch that closely. I think steroid should be added for his acute pneumonia especially with likely adrenal suppression. Will recheck x-rays in the morning. Exam (Progress Note) - Constitutional Vitals: Period Temp Pulse Resp BP Sys/[place] Toro Pulse Ox Last 24 Hr 97.7 F-99.6 F 94-128 18-28 114-168/76-96 92-100 Exam: He is afebrile and alert. Vital signs normal. Pupils react to light. Throat is clear. Neck supple no bruits. Chest shows rales about shelter up on the left. Right lung sounds essentially clear. Heart normal rate and rhythm no murmurs no rubs no gallops. Abdomen soft nontender no masses. Bowel sounds present. Extremities no clubbing cyanosis, has trace edema. Results - Labs CBC & BMP: 01/16/17 03:23 01/17/17 04:31 Lab Results: I have reviewed the past 24 hour labs Assessment and Plan (1) Congestive heart failure Status: Acute Assessment and plan: BNP was 560 on admission. Weight is about stable. Patient has LV ejection fraction 40-45% which would be a mild acute on chronic systolic congestive heart failure. I think we need to diurese him a little. There were areas of groundglass infiltrate in the right lung on CT that may well be pulmonary edema. Of course he certainly has pneumonia as well. His ejection fraction was 40% 2 years ago so this is not new. Current Visit: Yes (2) Status post lung transplantation Status: Acute Assessment and plan: History of a right lung transplant 10 years ago. He has pulmonary fibrosis in the remaining left lung. His right lung normally looks clear radiographically. The superimposed findings are all acute. I think he had both pneumonia and pulmonary edema on admission. Need repeat chest x-ray tomorrow. Current Visit: No (3) Hyponatremia Status: Acute Assessment and plan: I am cautiously giving him Lasix. Watch sodium. He has had some pretty severe hyponatremia in the past. Current Visit: Yes (4) Idiopathic pulmonary fibrosis Status: Acute Assessment and plan: This was the underlying cause of his chronic lung disease. His left long has end-stage pulmonary fibrosis. The right lung has thus far been spared since transplant. Hopefully the acute infiltrates will resolve with treatment of pneumonia and congestive heart failure. Current Visit: Yes (5) Pneumonia Status: Acute Assessment and plan: Presently on Levaquin and Rocephin. Cultures are negative thus far. I think this is a reasonable combination. Needs to finish at least a full week of these which would be through this coming . Current Visit: Yes
[2017-01-17] MEDS: MYCOPHENOLATE MOFETIL 250 MG CAPSULE PO SCH ×3 (09:43→21:12)
[2017-01-17] MEDS: ASPIRIN EC 81 MG TABLET PO SCH (09:44)
[2017-01-17] MEDS: predniSONE 5 MG TABLET PO SCH (09:45)
[2017-01-17] MEDS: FUROSEMIDE 40 MG/4 ML VIAL IV SCH (09:45)
[2017-01-17] MEDS: methylPREDNISolone SOD SUC 40 MG/1 ML VIAL IV SCH ×2 (09:45→21:06)
[2017-01-17] MEDS: INSULIN REGULAR 100 UNIT/ML SUBCUT SCH ×4 (09:55→21:13)
[2017-01-17] MEDS: cefTRIAXone 1,000 MG in SODIUM CHLORIDE 0.9% 100 ML IV SCH (12:14)
[2017-01-17] MEDS: LEVOFLOXACIN INJ 750 MG in PREMIX 1 EACH IV SCH (14:32)
--- NOTE | 2017-01-17 14:59 | Hospitalist Progress Note ---
Assessment and Plan (1) Pneumonia Status: Acute Assessment and plan: cont levaquin, steroids, duo nebs Current Visit: Yes (2) Status post lung transplantation Status: Acute Assessment and plan: for Idopathic IPF, plt dropping Current Visit: No (3) Thrombocytopenia Status: Acute Assessment and plan: probably due to mycophenolate, asa and sirolimus, will ask Dr. Hodge to see and recommend, PTT, PT, fibrinogen, d dimer, schistocytes Current Visit: Yes (4) Idiopathic pulmonary fibrosis Status: Acute Assessment and plan: Status post lung transplant. Patient is on sirolimus and mycophenolate Current Visit: Yes (5) Unsteady gait Status: Acute Assessment and plan: pt evaluation Current Visit: Yes (6) Hyponatremia Status: Acute Assessment and plan: improving, monitor while on lasix Current Visit: Yes (7) Congestive heart failure Status: Acute Assessment and plan: EF 40-45%, started on Lasix 40 mg IV daily will monitor BMP Current Visit: Yes Hospitalist: Subjective Interval history: Patient feeling better today but is extremely weak. Patient still requiring 2 L of oxygen. Exam - Constitutional Vitals: Period Temp Pulse Resp BP Sys/[place] Toro Pulse Ox Last 24 Hr 97.0 F-99.6 F 94-128 18-28 114-146/78-96 92-100 Exam: Heart Rate-[RRR] Lungs-[CTAB but diminished ] GI-[+bs soft, NT] Ext-[no edema] Neuro [Motor 5/5], [alert and oriented times 3] psych [normal mood and affect] General [no acute distress] Results - Labs CBC & BMP: 01/16/17 03:23 01/17/17 04:31 Lab Results: I have reviewed the past 24 hour labs Labs: Blood cultures 2 negative urine culture negative no growth stool for C. difficile negative. Quality Measures - VTE Deep Vein Thrombosis/Pulmonary Embolism Present on Admission: No
[2017-01-17] MEDS: POTASSIUM CHLORIDE 20 MEQ TABLET PO SCH (15:34)
[2017-01-17 15:51] LABS: Basophils % 0.2 % (0.0-0.8); Eosinophils % 0.2 % (0.00-10.9); Hematocrit 44.3 VOL% (42.0-52.0); Hemoglobin 14.2 GM/DL (14.0-18.0); Immature Granulocytes % 0.6 %; Immature Granulocytes Absolute 0.03 #; Lymphocytes # 0.7 10*3/uL (1.4-4.0); Lymphocytes % 12.5 % (21.2-54.2); Mean Corpuscular HGB Conc 32.1 GM/DL (32-36); Mean Corpuscular Hemoglobin 28 PG (27-34); Mean Corpuscular Volume 88.4 FL (87-102); Mean Platelet Volume 12.1 FL (9.6-12.0); Monocytes # 0.4 10*3/uL (0.11-0.8); Monocytes % 7.9 % (1.7-12.7); Neutrophils # 4.2 10*3/uL (1.4-7.4); Neutrophils % 78.6 % (38.7-73.9); Platelet Count 82 T/CUMM (130-400); Red Blood Count 5.01 MC/CUMM (3.8-5.5); Red Cell Distribution Width 15.6 % (9.3-17.3); White Blood Count 5.3 T/CUMM (4-12)
[2017-01-17 16:01] LABS: INR 1.1; PT Patient Result 12.1 SECS
--- NOTE | 2017-01-17 16:02 | Oncology Progress Note ---
Oncology Subjective PN Interval history: Consultation for thrombocytopenia. Patient admitted with diarrhea and shortness of breath. Blood cultures and stool studies negative. this is in a patient with right-sided lung transplantation 10 years prior who seems to have done very well during that time. He can recall only 1-2 hospitalizations related to his lungs over a 10 year interval. Followed regularly by Dr. Mosher. He is receiving antibiotics now. Platelets approximately 60,000 on admission with a dip into the 40s now trending upward today. His white blood count is normal and he is not neutropenic. His hemoglobin is also normal. his transplantation medications have been managed at [facility] with twice yearly visits. His dosing appears to have been very stable for the last several years Physical exam shows clear breath sounds on the right and fine inspiratory crackles on the left. He is awake and alert interactive and cooperative. Fibrinogen and coags are pending at this time. Overall the patient appears nontoxic and I believe we should simply observe his thrombocytopenia for now. There is no indication for transfusion. According to his home medication list his CellCept has been held since admission. He remains on sirolimus. He was also on low-dose prednisone previously. I do not have any specific recommendations regarding the transplant medications. Exam - Constitutional Vitals: Period Temp Pulse Resp BP Sys/[place] Toro Pulse Ox Last 24 Hr 97.0 F-99.6 F 94-128 18-28 114-146/78-96 92-100 Results - Labs CBC & BMP: 01/17/17 15:27 01/17/17 04:31 Quality Measures - VTE Deep Vein Thrombosis/Pulmonary Embolism Present on Admission: No
--- NOTE | 2017-01-17 17:18 | Neurology Consult Note ---
History of Present Illness History of present illness: Mr. Pittman is a 71 year old white male that has been followed by Dr. Mosher with interstitial pulmonary fibrosis and he has had a previous right lung transplant about 10 years ago. He also has a history of diabetes, hypertension , coronary artery disease, obstructive sleep apnea, and glaucoma. He came in several days ago because of weakness and confusion and vague chest aching. He apparently had chills and just did not feel very well. He did not seem to have worsening shortness of breath at that time. He did have mild hyponatremia and mild renal insufficiency. He reported that he just weak all over. He has some difficulty in walking and some balance difficulty. No recent falls reported. Home Medications Medication Instructions Recorded Confirmed Type Aspirin [Ecotrin] 81 mg PO QAM 03/17/15 01/13/17 History Atorvastatin Calcium 40 mg PO BEDTIME 03/17/15 01/13/17 History Ferrous Sulfate 325 mg PO BID 03/17/15 01/13/17 History Mycophenolate Mofetil Cap 500 mg PO TID 03/17/15 01/13/17 History [Cellcept] Sirolimus 1 mg PO BID 03/17/15 01/13/17 History Venlafaxine HCl 75 mg PO BEDTIME 03/17/15 01/13/17 History Insulin Glargine [Lantus] 50 unit SUBCUT BEDTIME #100 unit 03/20/15 01/13/17 Rx Insulin Aspart [NovoLOG FlexPen] 10 unit SUBCUT TID 01/13/17 01/13/17 History Magnesium Oxide 1,000 mg PO BID 01/13/17 01/13/17 History predniSONE TAB [PredniSONE] 5 mg PO QAM 01/13/17 01/13/17 History Allergies Allergy/AdvReac Type Severity Reaction Status Date / Time No Known Allergies Allergy Verified 01/13/17 16:20 12 point system: reviewed and no additional remarkable complaints except as stated Medical,Surgical,& Family Hx - Medical History Cardio: History of: Hypertension, [place], Pacemaker Psychological: History of: Depression HEENT: History of: Eye Problem, Glaucoma Endocrine: History of: Diabetes Mellitus (IDDM) Respiratory: History of: Obstructive Sleep Apnea, Respiratory Problems ( PULMONARY FIBROSIS) Renal: History of: Renal Failure Gastrointestinal: History of: GERD Musculoskeletal: History of: Back/Neck Problems (spinal stenosis) Other: History of: Cancer (SKIN CANCERS) - Surgical History Cardiac Surgeries: Sugical HX of: Cardiac Catheterization (STENTS PLACED 2006) Thoracic Surgeries: Surgical HX of;: Organ Transplant (LUNG TANSPLANT IN 2006), Lobectomy Neurologic Surgeries: Patient denies: Neurologic Surgery HEENT Surgeries: Patient denies: Tonsilectomy & Adenoidectomy Abdominal Surgeries: Surgical HX of: Colonoscopy Patient denies: Appendectomy, Cholecystectomy Reproductive Surgeries: Patient denies;: Breast Surgery, Vasectomy - Family History Family History: Reports;: Family Diabetes, Family Heart Disease (father, brother , sister), Family Hypertension Denies;: Family Cancer, Family Stroke - Social History Smoking Status: Former smoker Frequency of Alcohol Use: None Type of Drug Use: None Exam - Constitutional Vitals: Period Temp Pulse Resp BP Sys/[place] Pulse Ox Last 24 Hr 97.0 F-98.6 F 94-113 18-28 114-146/78-96 92-100 Exam: GENERAL: Patient is in no acute distress. NECK: Neck is supple. There is no JVD. No carotid bruits present. No thyroid masses. CVS: First and second heart sounds are normal. There is no S3 present. Regular rate and rhythm. RESPIRATORY: Lungs are clear to auscultation without any rales or rhonchi. ABDOMEN: Soft and non-tender. Bowel sounds are present. There is no hepatosplenomegaly. EXT: There is no palpable edema. Peripheral pulses are present. Skin: No rashes Central Nervous system: General: Alert, awake and Oriented x 3 Speech: Fluent Comprehension: Intact and normal Facial expressions: Normal Cranial Nerves: CN1/Olfactory: Normal CN II/ Optic: Normal, Visual Nguyen unreliable CN III, and : MARYBETH & EOMI CN V: Normal & intact CN VII: face is symmetric CNVIII: Normal CN XI/X/XI/XII: Intact and Normal Motor: Bulk and Tone is normal. Strength in the right 4/5 Strength in the left 4/5 Sensory: Decreased for all the modalities of PP, LT and temp sense Reflexes: 1+ and symmetrical Cerebellar function: Normal finger to nose and heel to carballo testing. Toes: Equivocal Gait: Broad-based gait Results - Labs CBC & BMP: 01/17/17 15:27 01/17/17 04:31 Assessment and Plan (1) Gait disorder Status: Acute Assessment and plan: This is multifactorial including polyneuropathy and deconditioning/debility. Continue PT and OT No new recommendations at this time. Current Visit: Yes
[2017-01-17] MEDS: ATORVASTATIN 40 MG TABLET PO SCH (21:12)
[2017-01-18 05:53] LABS: Potassium 3.5 MMOL/L (3.5-5.1)
--- NOTE | 2017-01-18 07:14 | Pulmonology Progress Note ---
Pulmonary - PN: Subj Interval history: This 71-year-old white male is a patient that I followed for a number of years with a previous right lung transplant. He is chronically on immunosuppressant drugs. He came in with fever of 102 and patchy infiltrates primarily in the right lung. He has severe fibrosis in his remaining [place] left long. He also had signs of pulmonary edema, and elevated BNP of 560, and mild systolic congestive heart failure with ejection fraction of 40-45%. I think he is still a little ahead on fluid. Will bump with Lasix. He does have a history of hyponatremia in the past so we will have to watch that closely. I think steroid should be added for his acute pneumonia especially with likely adrenal suppression. Will recheck x-rays in the morning. 01/18/2017 patient is afebrile. He is confused. Chest x-ray is pending. Oxygen saturations look better. I will decrease his steroids as some of the confusion may be related to that. Neurology has seen him. He had both pneumonia and congestive heart failure. He is an immunocompromised host. He needs IV antibiotics longer. His mental status needs to improve before planned for discharge as well. Exam (Progress Note) - Constitutional Vitals: Period Temp Pulse Resp BP Sys/[place] Pulse Ox Last 24 Hr 96.1 F-97.4 F 75-99 18-20 120-140/78-98 95-99 Exam: He is afebrile and alert. He is somewhat confused. Vital signs normal. Pupils react to light. Throat is clear. Neck supple no bruits. Chest shows rales about alf up on the left. Right lung sounds essentially clear. Heart normal rate and rhythm no murmurs no rubs no gallops. Abdomen soft nontender no masses. Bowel sounds present. Extremities no clubbing cyanosis, has trace edema. Results - Labs CBC & BMP: 01/17/17 15:27 01/18/17 04:44 Lab Results: I have reviewed the past 24 hour labs - Diagnostic Findings Procedure: Chest x-ray: pending Assessment and Plan (1) Congestive heart failure Status: Acute Assessment and plan: BNP was 560 on admission. Weight is about stable. Patient has LV ejection fraction 40-45% which would be a mild acute on chronic systolic congestive heart failure. I think we need to diurese him a little. There were areas of groundglass infiltrate in the right lung on CT that may well be pulmonary edema. Of course he certainly has pneumonia as well. His ejection fraction was 40% 2 years ago so this is not new. 01/18/2017 repeat chest x-ray is pending. Hopefully we will see some improvement in the pulmonary edema. Current Visit: Yes (2) Status post lung transplantation Status: Acute Assessment and plan: History of a right lung transplant 10 years ago. He has pulmonary fibrosis in the remaining left lung. His right lung normally looks clear radiographically. The superimposed findings are all acute. I think he had both pneumonia and pulmonary edema on admission. Need repeat chest x-ray tomorrow. 01/18/2017 he is immunocompromised. Has thrombocytopenia of unknown etiology. Current Visit: No (3) Hyponatremia Status: Acute Assessment and plan: I am cautiously giving him Lasix. Watch sodium. He has had some pretty severe hyponatremia in the past. 01/18/2017 sodium is up to 136 and stable. Did have a good response to Lasix. Recorded weights do not appear accurate. Current Visit: Yes (4) Idiopathic pulmonary fibrosis Status: Acute Assessment and plan: This was the underlying cause of his chronic lung disease. His left long has end-stage pulmonary fibrosis. The right lung has thus far been spared since transplant. Hopefully the acute infiltrates will resolve with treatment of pneumonia and congestive heart failure. Current Visit: Yes (5) Pneumonia Status: Acute Assessment and plan: Presently on Levaquin and Rocephin. Cultures are negative thus far. I think this is a reasonable combination. Needs to finish at least a full week of these which would be through this coming . 01/18/2017 pneumonia in an immunocompromised host. Need to finish out antibiotics at least through . Current Visit: Yes
[2017-01-18 07:52] LABS: Band Neutrophils 5 % (0-10); Lymphocytes 7 % (20-55); Segmented Neutrophils 84 % (50-85); Total Cells Counted 100
[2017-01-18 07:53] LABS: Hypochromasia Slight; Microcytosis Slight
[2017-01-18 07:54] LABS: Burr Cells Slight; Platelet Estimate Decreased
--- NOTE | 2017-01-18 08:07 | XRay Report ---
XR chest 2V Indication: Pneumonia, CHF, history of right lung transplant, IPF Comparison: Chest x-ray dated January 15, 2017 Technique: Frontal and lateral views of the chest Findings: Heart remains somewhat obscured. Cardiac pacemaker apparatus again noted. Continued significant coarse and interstitial prominence of the left lung with volume loss consistent with chronic interstitial lung disease. Interval decreased hazy opacification throughout the right lung suggesting improved pneumonia or pulmonary edema. Mild interstitial prominence of the right lung remains with subtle scattered small opacities. Osseous and surrounding soft tissue structures appear grossly unchanged. IMPRESSION: As above. PROCEDURE INTERPRETED AT [facility] DEPARTMENT OF RADIOLOGY Final Report Signed by: Dr Rich Higgins
[2017-01-18] MEDS: MYCOPHENOLATE MOFETIL 250 MG CAPSULE PO SCH ×3 (08:40→21:55)
[2017-01-18] MEDS: POTASSIUM CHLORIDE 20 MEQ TABLET PO SCH (08:41)
[2017-01-18] MEDS: predniSONE 20 MG TABLET PO SCH (08:41)
[2017-01-18] MEDS: INSULIN REGULAR 100 UNIT/ML SUBCUT SCH ×4 (08:42→21:55)
[2017-01-18] MEDS: FUROSEMIDE 40 MG/4 ML VIAL IV SCH (08:42)
[2017-01-18] MEDS: cefTRIAXone 1,000 MG in SODIUM CHLORIDE 0.9% 100 ML IV SCH (11:26)
--- NOTE | 2017-01-18 12:36 | Hospitalist Progress Note ---
Assessment and Plan (1) Pneumonia Status: Acute Assessment and plan: cont levaquin, steroids, duonebs Current Visit: Yes (2) Status post lung transplantation Status: Acute Assessment and plan: for Idopathic IPF, plt stable Current Visit: No (3) Thrombocytopenia Status: Acute Assessment and plan: Dr. Hodge does not recommend stopping mycophenolate, asa and sirolimus, will ask Dr. Hodge to see and recommend, PTT, PT, fibrinogen, d dimer, schistocytes Current Visit: Yes (4) Idiopathic pulmonary fibrosis Status: Acute Assessment and plan: Status post lung transplant. Patient needs to take his own supply of sirolimus and continue mycophenolate Current Visit: Yes (5) Unsteady gait Status: Acute Assessment and plan: pt and ot evaluation. Dr. Tyler recommends further rehab Current Visit: Yes (6) Hyponatremia Status: Acute Assessment and plan: resolved Current Visit: Yes (7) Congestive heart failure Status: Acute Assessment and plan: EF 40-45%, cont Lasix 40 mg IV daily Current Visit: Yes Hospitalist: Subjective Interval history: Patient still short of breath with ambulation. His sats have stabilized at 95% on room air. He still a little bit confused. Some of this should clear up. Dr. Mosher would like to give him IV antibiotics longer due to his immunocompromise state. Patient has refused to go to rehab and wants to go home with home health. Patient is off balance. Neurology has seen him in more recommends continuing PT and OT Exam - Constitutional Vitals: Period Temp Pulse Resp BP Sys/[place] Pulse Ox Last 24 Hr 96.1 F-97.4 F 75-97 18-20 109-140/68-98 95-99 Exam: Heart Rate-[RRR] Lungs-[CTAB GI-[+bs soft, NT] Ext-[no edema] Neuro [Motor 5/5], [alert and oriented times 3 but alittle confused] psych [normal mood and affect] General [no acute distress] Results - Labs CBC & BMP: 01/17/17 15:27 01/18/17 04:44 Lab Results: I have reviewed the past 24 hour labs Quality Measures - VTE Deep Vein Thrombosis/Pulmonary Embolism Present on Admission: No
[2017-01-18] MEDS: LEVOFLOXACIN INJ 750 MG in PREMIX 1 EACH IV SCH (12:46)
[2017-01-18] MEDS: SIROLIMUS 1 MG PO SCH ×2 (12:46→21:59)
[2017-01-18] MEDS: ATORVASTATIN 40 MG TABLET PO SCH (21:55)
--- NOTE | 2017-01-19 06:50 | Pulmonology Progress Note ---
Pulmonary - PN: Subj Interval history: This 71-year-old white male is a patient that I followed for a number of years with a previous right lung transplant. He is chronically on immunosuppressant drugs. He came in with fever of 102 and patchy infiltrates primarily in the right lung. He has severe fibrosis in his remaining [place] left long. He also had signs of pulmonary edema, and elevated BNP of 560, and mild systolic congestive heart failure with ejection fraction of 40-45%. I think he is still a little ahead on fluid. Will bump with Lasix. He does have a history of hyponatremia in the past so we will have to watch that closely. I think steroid should be added for his acute pneumonia especially with likely adrenal suppression. Will recheck x-rays in the morning. 01/18/2017 patient is afebrile. He is confused. Chest x-ray is pending. Oxygen saturations look better. I will decrease his steroids as some of the confusion may be related to that. Neurology has seen him. He had both pneumonia and congestive heart failure. He is an immunocompromised host. He needs IV antibiotics longer. His mental status needs to improve before planned for discharge as well. 01/19/2017 patient is less confused today. He was able to describe walking with physical therapy in the waiting area outside his room. He relates that he lives alone with his 2 parents. He normally is able to go to the grocery store and grape picker easily to cook items. He does need a little more physical therapy to get back to that level. He has been on 5 days of IV antibiotics. In my opinion he needs 2 more days. He certainly is immunocompromised from the CellCept and sirolimus that he has been on. His mental status has improved since I reduced his prednisone. I think the higher dose Solu-Medrol was causing some delirium. We could shoot for a Tuesday discharge. Exam (Progress Note) - Constitutional Vitals: Period Temp Pulse Resp BP Sys/[place] Pulse Ox Last 24 Hr 96.6 F-97.6 F 77-110 16-20 106-118/66-80 94-97 Exam: He is afebrile and alert. He is not confused. Vital signs normal. Pupils react to light. Throat is clear. Neck supple no bruits. Chest shows rales about jail up on the left. Right lung sounds essentially clear. Heart normal rate and rhythm no murmurs no rubs no gallops. Abdomen soft nontender no masses. Bowel sounds present. Extremities no clubbing cyanosis, has trace edema. Results - Labs CBC & BMP: 01/17/17 15:27 01/18/17 04:44 Lab Results: I have reviewed the past 24 hour labs Assessment and Plan (1) Congestive heart failure Status: Acute Assessment and plan: BNP was 560 on admission. Weight is about stable. Patient has LV ejection fraction 40-45% which would be a mild acute on chronic systolic congestive heart failure. I think we need to diurese him a little. There were areas of groundglass infiltrate in the right lung on CT that may well be pulmonary edema. Of course he certainly has pneumonia as well. His ejection fraction was 40% 2 years ago so this is not new. 01/18/2017 repeat chest x-ray is pending. Hopefully we will see some improvement in the pulmonary edema. 01/19/2017 yesterday's x-ray showed the right lung to be clear now. He has a mild cardiomyopathy and tends to get congestive heart failure when he has other stressors such as fluid overload or pneumonia. Current Visit: Yes (2) Status post lung transplantation Status: Acute Assessment and plan: History of a right lung transplant 10 years ago. He has pulmonary fibrosis in the remaining left lung. His right lung normally looks clear radiographically. The superimposed findings are all acute. I think he had both pneumonia and pulmonary edema on admission. Need repeat chest x-ray tomorrow. 01/18/2017 he is immunocompromised. Has thrombocytopenia of unknown etiology. 01/19/2017 is transplanted lung now appears to be clear. Current Visit: No (3) Hyponatremia Status: Acute Assessment and plan: I am cautiously giving him Lasix. Watch sodium. He has had some pretty severe hyponatremia in the past. 01/18/2017 sodium is up to 136 and stable. Did have a good response to Lasix. Recorded weights do not appear accurate. Current Visit: Yes (4) Idiopathic pulmonary fibrosis Status: Acute Assessment and plan: This was the underlying cause of his chronic lung disease. His left long has end-stage pulmonary fibrosis. The right lung has thus far been spared since transplant. Hopefully the acute infiltrates will resolve with treatment of pneumonia and congestive heart failure. 01/19/2017 he is not on any particular medicine for the pulmonary fibrosis. The immunosuppressant drugs are for the transplanted lung. His left lung is basically end-stage pulmonary fibrosis. Current Visit: Yes (5) Pneumonia Status: Acute Assessment and plan: Presently on Levaquin and Rocephin. Cultures are negative thus far. I think this is a reasonable combination. Needs to finish at least a full week of these which would be through this coming . 01/18/2017 pneumonia in an immunocompromised host. Need to finish out antibiotics at least through . 01/19/2017 cultures have been negative. Actually needs antibiotics until Tuesday. That would like 7 days of IV meds which under the circumstances of immunocompromise would be indicated. Would keep on oral antibiotics for another 3 days after that. Current Visit: Yes
--- NOTE | 2017-01-19 08:23 | Discharge Summary ---
<Spencer Zavaleta - Last Filed: 01/19/17 08:04> Hospital Course - Hospital Course Hospital Course: This patient is a 71 year old male who was admitted through the [facility] ED on 01/13/2017 for further evaluation of weakness, fatigue and near syncope. On admission, he was found to be hyponatremic with elevated troponins and uncontrolled diabetes mellitus. He was evaluated for syncope with a CXR, echocardiogram, and head CT and admitted to the ICU. Echo revealed EF of 40-45% with mild tricuspid regurgitation; mild systolic CHF. CXR showed scattered opacities with the right lung and there are persistent prominent opacities within the left lung. Head CT was negative for any acute intracranial progress. While in the ICU, his electrolytes improved after hydration with normal saline which in turn improved his mental status. He was transferred to telemetry on 01/2017. Pulmonology was consulted and the patient's anti-rejection meds s/p lung transplant were restarted. The patient's pneumonia was treated with Levaquin and Rocephin. Cultures were negative. He was cautiously diuresed with lasix. Hematology was consulted for thrombocytopenia; found no reason to recommend transfusion at this time. Neurology was consulted for confusion and unsteady gait; again, no recommendations outside of PT and OT. The remainder of his course was relatively uncomplicated, highlighted by management of his chronic conditions and treating the pneumonia. Discharge Plan - Discharge Data Disposition: Home Health Service - Discharge Medications New Levofloxacin Tab [Levaquin Tab] 750 mg PO DAILY #6 tablet Continue Atorvastatin Calcium 40 mg PO BEDTIME Mycophenolate Mofetil Cap [Cellcept] 500 mg PO TID Ferrous Sulfate 325 mg PO BID Venlafaxine HCl 75 mg PO BEDTIME Sirolimus 1 mg PO BID Aspirin [Ecotrin] 81 mg PO QAM Magnesium Oxide 1,000 mg PO BID Albuterol/Ipratropium Neb [Duoneb] 3 ml RESP TX TID #90 vial predniSONE TAB [PredniSONE] 5 mg PO QAM #45 tablet Changed Insulin Glargine [Lantus] 30 unit SUBCUT BEDTIME #100 unit Discontinued Insulin Aspart [NovoLOG FlexPen] 10 unit SUBCUT TID - Follow Up or Referral Follow Up: Aristeo Mosher MD [Physician] - 2 Weeks - Forms/Instructions Exam - Constitutional Vitals: Period Temp Pulse Resp BP Sys/[place] Pulse Ox Last 24 Hr 96.5 F-98.1 F 65-101 16-20 102-138/69-88 91-97 Discharge Results Procedures and tests throughout hospitalization: Pending Orders 01/15/17 11:50 Sputum Culture and Gram Stain Routine Labs on day of discharge: Labs from last 24 hours 01/21/17 01/20/17 01/20/17 07:26 19:14 15:50 POC Glucose 106 323 H 354 H 01/20/17 11:27 POC Glucose 210 H DS: Provider Date of admission: 01/13/17 18:35 Primary care physician: . No PCP Attending physician on admission: Carlene Duke MD Consults: 01/13/17 20:53 Consult to Physician [CONS] Routine Comment: Consulting Provider: Marty Tyler When should Consulting Provider be notified: Now 01/13/17 20:58 Consult to Pharmacy [CONS] Routine Reason for Pharmacy Consult: Adjust Meds Renal Funct 01/15/17 11:53 Consult to Physician [CONS] Routine Comment: Consulting Provider: Aristeo Mosher Consulting Provider Notified: No When should Consulting Provider be notified: Now 01/17/17 12:25 Consult to Physical Therapy [CONS] Routine Reason for Physical Therapy: Weakness Start Therapy: Today 01/17/17 15:07 Consult to Physician [CONS] Routine Comment: low plt, On transplant med, ?allowed to stop Consulting Provider: Beck Hodge When should Consulting Provider be notified: Now Consult to Specialist Group: Oncology Person Notified: Date Notified: 01/17/17 Time Notified: 15:20 01/18/17 12:33 Consult to Occupational Therapy [CONS] Routine Reason for Occupational Therapy: Evaluate and Treat Discharging clinician: Spencer AVENDAÑO Expected date of discharge: 01/19/17 <Veronique Kidd - Last Filed: 01/21/17 10:52> Hospital Course - Hospital Course Hospital Course: Patient seen and examined, hospital course reviewed and edited. Thrombocytopenia thought to be secondary to Cellcept, sirolimus and illness. Platelets have recovered after holding the sirolimus for several days to 178. Patient is extremely weak and has been working with physical therapy. He refuses to go to a rehab unit despite both myself and Dr. Mosher asking him to. Chest xray clearing the pneumonia but patient remains weak. Renal function deteriorated on Lasix. But patient has acute on chronic systolic congestive heart failure which is now resolved with diuresis. Patient may require low dose of Lasix but I will defer to Dr. Mosher for this. Will finish with 6 more days of Levaquin p.o. discharge home today with home health. - Time spent with patient Time with patient DS: Greater than 30 minutes (60 min) Diagnosis - Discharge Diagnosis (1) Pneumonia Status: Acute (2) Status post lung transplantation Status: Acute (3) Thrombocytopenia Status: Acute (4) Idiopathic pulmonary fibrosis Status: Acute (5) Unsteady gait Status: Acute (6) Congestive heart failure Status: Acute Discharge Plan - Discharge Data Condition at Discharge: Stable Discharge Diet: diabetic diet Activity: resume usual activities as tolerated Hygiene: no restrictions - Forms/Instructions Additional Discharge Instructions: nebulizer machine for home, rolator walker. Home health with nurse, aide and PT Exam - Constitutional General appearance: normal weight, no acute distress - Respiratory Respiratory exam: Present: clear to auscultation bilaterally. Absent: rhonchi, wheezes - Cardiovascular Cardiovascular exam: Present: regular rate and rhythm. Absent: systolic murmur - GI/Abdominal GI/Abdominal exam: Present: normal bowel sounds, soft. Absent: tenderness - Extremities Exam Extremities exam: Present: normal inspection, normal capillary refill - Neurological Exam Neurological exam: Present: alert, oriented X3
[2017-01-19] MEDS: FUROSEMIDE 40 MG/4 ML VIAL IV SCH (08:38)
[2017-01-19] MEDS: INSULIN REGULAR 100 UNIT/ML SUBCUT SCH ×4 (08:39→21:41)
[2017-01-19] MEDS: SIROLIMUS 1 MG PO SCH (08:39)
[2017-01-19] MEDS: predniSONE 20 MG TABLET PO SCH (08:39)
[2017-01-19] MEDS: POTASSIUM CHLORIDE 20 MEQ TABLET PO SCH (08:39)
[2017-01-19] MEDS: MYCOPHENOLATE MOFETIL 250 MG CAPSULE PO SCH ×3 (08:39→21:43)
[2017-01-19] MEDS: cefTRIAXone 1,000 MG in SODIUM CHLORIDE 0.9% 100 ML IV SCH (12:54)
--- NOTE | 2017-01-19 14:13 | Physician Query Form ---
CLICK EDIT DOCUMENT TO SELECT QUERY ANSWER --> OK --> SIGN Monica Allen RN Clinical Boom Man W) [phone] (f) [phone] [email or web address] PROVIDERS: Make your selection(s) from the choices in EACH section by typing an "x" and enter comments in the comment section. Please use your independent medical judgment in providing your response. This request does not imply that any particular answer is desired or expected. CLINICAL INDICATORS: (Providers should not edit this section) Based on documentation of "Altered mental status" "found to be altered and disheveled. sodium was grossly abnormal at 127" "has had some weakness and some confusion" "fever of 102. patchy infiltrates primarily in the right lung" "Pneumonia" "think the higher dose Solu-Medrol was causing some delirium." "electrolytes improved after hydration with normal saline which in turn improved his mental status" "pneumonia was treated with Levaquin and Rocephin" ACUITY: ( x) Acute ( ) Acute on Chronic ( ) Chronic ( ) Clinically unable to determine NATURE: ( ) Delirium due to general medical condition ( ) Dementia (x ) Encephalopathy metabolic ( ) Unconscious ( ) Transient level of awareness ( ) Comatose ( ) Locked-in State ( ) Persistent Vegetative State ( ) Other, please specify: ( ) Clinically unable to determine Please indicate the underlying cause of the altered mental status (CHECK ALL THAT APPLY): ( ) Baseline dementia ( ) Alzheimer's disease ( ) Parkinson's disease ( ) Lewy body dementia ( ) Acute stroke ( ) Late effect of stroke ( ) Reactive (from emotional stress, psychological trauma) ( ) Due to narcotics/other drugs ( ) Post procedural delirium ( ) Transient ischemic attack ( ) Generalized cerebral edema ( ) Normal pressure hydrocephalus ( ) Psychiatric illness ( ) Other, please specify: ( ) Clinically unable to determine Please indicate if there is an infection, sepsis, dehydration or specific organ failure that is causing the dementia. Be specific with clarifying the relationship between that process and the mental status change. COMMENTS: Use of terms such as suspected, likely, or probable (associated with a specific diagnosis that is being evaluated, monitored, or treated as if it exists) are acceptable and can be restated in the discharge summary if not ruled out. MTDD
--- NOTE | 2017-01-19 14:23 | Physician Query Form ---
CLICK EDIT DOCUMENT TO SELECT QUERY ANSWER --> OK --> SIGN Monica Allen RN Clinical Commercial Assistant W) [phone] (f) [phone] [email or web address] PROVIDERS: Make your selection(s) from the choices in EACH section by typing an "x" and enter comments in the comment section. Please use your independent medical judgment in providing your response. This request does not imply that any particular answer is desired or expected. CLINICAL INDICATORS: (Providers should not edit this section) Based on documentation of "Weakness,fatigue, and near syncope" "pneumonia" "patient's anti-rejection meds s/p lung transplant were restarted" "patient's pneumonia was treated with Levaquin and Rocephin" "altered mental status" WBC of 2.3, Temp of 102.5, Heart rate of 107. BP of 153/101. Treated with IV fluids , IV antibiotics. Based on the above, could you clarify the appropriate diagnosis, if significant , that supports the above abnormalities and additional evaluation, monitoring, and/or treatment rendered: ( ) Treated for sepsis (x ) Treated for sepsis with septic shock ( ) Was NOT treated for sepsis ( ) Other, please specify: ( ) Clinically unable to determine COMMENTS: Use of terms such as suspected, likely, or probable (associated with a specific diagnosis that is being evaluated, monitored, or treated as if it exists) are acceptable and can be restated in the discharge summary if not ruled out. MTDD
--- NOTE | 2017-01-19 15:41 | Hospitalist Progress Note ---
Assessment and Plan (1) Pneumonia Status: Acute Assessment and plan: cont levaquin, steroids, duonebs Current Visit: Yes (2) Status post lung transplantation Status: Acute Assessment and plan: for Idopathic IPF, plt stable, cont mycophenolate but has not received sirolimus because we dont carry it and pt does not have it with him Current Visit: No (3) Thrombocytopenia Status: Acute Assessment and plan: repeat cbc in am Current Visit: Yes (4) Idiopathic pulmonary fibrosis Status: Acute Assessment and plan: Status post lung transplant. Patient needs to take his own supply of sirolimus and continue mycophenolate Current Visit: Yes (5) Unsteady gait Status: Acute Assessment and plan: cont pt Current Visit: Yes (6) Congestive heart failure Status: Acute Assessment and plan: EF 40-45%, cont Lasix 40 mg IV daily, bmp in am Current Visit: Yes Hospitalist: Subjective Interval history: Feeling fine, really wants to go home. Dr. Mosher would like him to receive two more days of IV antibiotics Exam - Constitutional Vitals: Period Temp Pulse Resp BP Sys/[place] Pulse Ox Last 24 Hr 97.0 F-97.6 F 73-110 16-20 106-129/63-82 93-97 Exam: Heart Rate-[RRR] Lungs-[CTAB GI-[+bs soft, NT] Ext-[no edema] Neuro [Motor 5/5], [alert and oriented times 3 ] psych [normal mood and affect] General [no acute distress] Results - Labs CBC & BMP: 01/17/17 15:27 01/18/17 04:44 Lab Results: I have reviewed the past 24 hour labs Labs: blood cx times 2 negative - Diagnostic Findings Procedure: Chest x-ray: report reviewed by me (improving pneumonia and edema ) Quality Measures - VTE Deep Vein Thrombosis/Pulmonary Embolism Present on Admission: No
[2017-01-19] MEDS: LEVOFLOXACIN INJ 750 MG in PREMIX 1 EACH IV SCH (15:51)
--- NOTE | 2017-01-19 16:13 | Neurology Progress Note ---
Neurology - PN : Subjective Interval history: Patient seems to be doing really well neurologically. No new problems reported. Able to get up and walk. Exam (Progress Note) - Constitutional Vitals: Period Temp Pulse Resp BP Sys/Del Toro Pulse Ox Last 24 Hr 97.0 F-97.6 F 73-110 16-20 106-129/63-82 93-97 Exam: GENERAL: Patient is in no acute distress. NECK: Neck is supple. There is no JVD. No carotid bruits present. No thyroid masses. CVS: First and second heart sounds are normal. There is no S3 present. Regular rate and rhythm. RESPIRATORY: Lungs are clear to auscultation without any rales or rhonchi. ABDOMEN: Soft and non-tender. Bowel sounds are present. There is no hepatosplenomegaly. EXT: There is no palpable edema. Peripheral pulses are present. Skin: No rashes Central Nervous system: General: Alert, awake and Oriented x 3 Speech: Fluent Comprehension: Intact and normal Facial expressions: Normal Cranial Nerves: CN1/Olfactory: Normal CN II/ Optic: Normal, Visual Nguyen unreliable CN III, and : MARYBETH & EOMI CN V: Normal & intact CN VII: face is symmetric CNVIII: Normal CN XI/X/XI/XII: Intact and Normal Motor: Bulk and Tone is normal. Strength in the right 4/5 Strength in the left 4/5 Sensory: Decreased for all the modalities of PP, LT and temp sense Reflexes: 1+ and symmetrical Cerebellar function: Normal finger to nose and heel to carballo testing. Toes: Equivocal Gait: Broad-based gait Results - Labs CBC & BMP: 01/17/17 15:27 01/18/17 04:44 Assessment and Plan (1) Gait disorder Status: Acute Assessment and plan: This is multifactorial including polyneuropathy and deconditioning/debility. Continue PT and OT No new recommendations at this time. Sign off please call as needed Current Visit: Yes Quality Measures - VTE Deep Vein Thrombosis/Pulmonary Embolism Present on Admission: No
[2017-01-19] MEDS: RAPAMUNE PO SCH (18:40)
[2017-01-19] MEDS: ATORVASTATIN 40 MG TABLET PO SCH (21:43)
[2017-01-20 06:08] LABS: Eosinophils % 0.6 % (0.00-10.9); Hematocrit 43.5 VOL% (42.0-52.0); Hemoglobin 14.8 GM/DL (14.0-18.0); Immature Granulocytes Absolute 0.07 #; Lymphocytes % 14.6 % (21.2-54.2); Mean Corpuscular Hemoglobin 29 PG (27-34); Mean Corpuscular Volume 84.3 FL (87-102); Mean Platelet Volume 10.6 FL (9.6-12.0); Monocytes % 14.5 % (1.7-12.7); Neutrophils # 4.6 10*3/uL (1.4-7.4); Neutrophils % 69.3 % (38.7-73.9); Red Blood Count 5.16 MC/CUMM (3.8-5.5); Red Cell Distribution Width 15.6 % (9.3-17.3); White Blood Count 6.7 T/CUMM (4-12)
[2017-01-20 06:30] LABS: Platelet Count 178 T/CUMM (130-400)
--- NOTE | 2017-01-20 06:31 | Pulmonology Progress Note ---
Pulmonary - PN: Subj Interval history: This 71-year-old white male is a patient that I followed for a number of years with a previous right lung transplant. He is chronically on immunosuppressant drugs. He came in with fever of 102 and patchy infiltrates primarily in the right lung. He has severe fibrosis in his remaining [place] left long. He also had signs of pulmonary edema, and elevated BNP of 560, and mild systolic congestive heart failure with ejection fraction of 40-45%. I think he is still a little ahead on fluid. Will bump with Lasix. He does have a history of hyponatremia in the past so we will have to watch that closely. I think steroid should be added for his acute pneumonia especially with likely adrenal suppression. Will recheck x-rays in the morning. 01/18/2017 patient is afebrile. He is confused. Chest x-ray is pending. Oxygen saturations look better. I will decrease his steroids as some of the confusion may be related to that. Neurology has seen him. He had both pneumonia and congestive heart failure. He is an immunocompromised host. He needs IV antibiotics longer. His mental status needs to improve before planned for discharge as well. 01/19/2017 patient is less confused today. He was able to describe walking with physical therapy in the waiting area outside his room. He relates that he lives alone with his 2 parents. He normally is able to go to the grocery store and package pick up easily to cook items. He does need a little more physical therapy to get back to that level. He has been on 5 days of IV antibiotics. In my opinion he needs 2 more days. He certainly is immunocompromised from the CellCept and sirolimus that he has been on. His mental status has improved since I reduced his prednisone. I think the higher dose Solu-Medrol was causing some delirium. We could shoot for a Tuesday discharge. 01/20/2017 reviewing his medications I note that he is not on his usual dose of Lantus at bedtime. He is normally on about 50 units each night. I will resume it at 30 units so not to overshoot. His blood sugars have continued to be high in part due to the steroids. This may be causing some of his confusion. He should complete antibiotics and be ready for discharge tomorrow. I will see him back in the office. Exam (Progress Note) - Constitutional Vitals: Period Temp Pulse Resp BP Sys/Del Toro Pulse Ox Last 24 Hr 96.7 F-98.2 F 73-86 16-20 113-133/58-97 93-98 Exam: He is afebrile and alert. He is not confused, but does take a while to answer questions. Vital signs normal. Pupils react to light. Throat is clear. Neck supple no bruits. Chest shows rales about senior living up on the left. Right lung sounds essentially clear. Heart normal rate and rhythm no murmurs no rubs no gallops. Abdomen soft nontender no masses. Bowel sounds present. Extremities no clubbing cyanosis, has trace edema. Results - Labs CBC & BMP: 01/17/17 15:27 01/18/17 04:44 Lab Results: I have reviewed the past 24 hour labs Assessment and Plan (1) Congestive heart failure Status: Acute Assessment and plan: BNP was 560 on admission. Weight is about stable. Patient has LV ejection fraction 40-45% which would be a mild acute on chronic systolic congestive heart failure. I think we need to diurese him a little. There were areas of groundglass infiltrate in the right lung on CT that may well be pulmonary edema. Of course he certainly has pneumonia as well. His ejection fraction was 40% 2 years ago so this is not new. 01/18/2017 repeat chest x-ray is pending. Hopefully we will see some improvement in the pulmonary edema. 01/19/2017 yesterday's x-ray showed the right lung to be clear now. He has a mild cardiomyopathy and tends to get congestive heart failure when he has other stressors such as fluid overload or pneumonia. 01/20/2017 does not appear to be in failure at present. Current Visit: Yes (2) Status post lung transplantation Status: Acute Assessment and plan: History of a right lung transplant 10 years ago. He has pulmonary fibrosis in the remaining left lung. His right lung normally looks clear radiographically. The superimposed findings are all acute. I think he had both pneumonia and pulmonary edema on admission. Need repeat chest x-ray tomorrow. 01/18/2017 he is immunocompromised. Has thrombocytopenia of unknown etiology. 01/19/2017 is transplanted lung now appears to be clear. 01/20/2017 has end-stage pulmonary fibrosis in his remaining left lung. Right lung has been transplanted and looks clear after improvement of his pneumonia and congestive heart failure. Current Visit: No (3) Hyponatremia Status: Acute Assessment and plan: I am cautiously giving him Lasix. Watch sodium. He has had some pretty severe hyponatremia in the past. 01/18/2017 sodium is up to 136 and stable. Did have a good response to Lasix. Recorded weights do not appear accurate. Current Visit: Yes (4) Idiopathic pulmonary fibrosis Status: Acute Assessment and plan: This was the underlying cause of his chronic lung disease. His left long has end-stage pulmonary fibrosis. The right lung has thus far been spared since transplant. Hopefully the acute infiltrates will resolve with treatment of pneumonia and congestive heart failure. 01/19/2017 he is not on any particular medicine for the pulmonary fibrosis. The immunosuppressant drugs are for the transplanted lung. His left lung is basically end-stage pulmonary fibrosis. 01/20/2017 this is his underlying lung process that caused the right lung transplant to occur. Current Visit: Yes (5) Pneumonia Status: Acute Assessment and plan: Presently on Levaquin and Rocephin. Cultures are negative thus far. I think this is a reasonable combination. Needs to finish at least a full week of these which would be through this coming . 01/18/2017 pneumonia in an immunocompromised host. Need to finish out antibiotics at least through . 01/19/2017 cultures have been negative. Actually needs antibiotics until Tuesday. That would like 7 days of IV meds which under the circumstances of immunocompromise would be indicated. Would keep on oral antibiotics for another 3 days after that. 01/20/2017 this is improved with treatment. Needs another day of IV antibiotics so we will have completed 7 days considering that he has immunocompromised from his sirolimus and CellCept. Also prednisone. Current Visit: Yes
[2017-01-20 06:46] LABS: Calcium 8.5 MG/DL (8.5-10.1); Osmolality,Calculated 292.3 MOS/KG (273-304)
[2017-01-20 06:57] LABS: Hypochromasia 1+; Target Cells Slight
[2017-01-20] MEDS: INSULIN REGULAR 100 UNIT/ML SUBCUT SCH ×4 (08:41→21:13)
[2017-01-20] MEDS: FUROSEMIDE 40 MG/4 ML VIAL IV SCH (08:59)
[2017-01-20] MEDS: MYCOPHENOLATE MOFETIL 250 MG CAPSULE PO SCH ×3 (09:00→21:14)
[2017-01-20] MEDS: predniSONE 20 MG TABLET PO SCH (09:00)
[2017-01-20] MEDS: POTASSIUM CHLORIDE 20 MEQ TABLET PO SCH (09:00)
[2017-01-20] MEDS: RAPAMUNE PO SCH (09:00)
[2017-01-20] MEDS: cefTRIAXone 1,000 MG in SODIUM CHLORIDE 0.9% 100 ML IV SCH (12:10)
[2017-01-20] MEDS: LEVOFLOXACIN INJ 750 MG in PREMIX 1 EACH IV SCH (13:11)
--- NOTE | 2017-01-20 13:38 | Hospitalist Progress Note ---
Assessment and Plan (1) Pneumonia Status: Acute Assessment and plan: cont levaquin, steroids, duonebs Current Visit: Yes (2) Status post lung transplantation Status: Acute Assessment and plan: for Idopathic IPF, plt stable, cont mycophenolate and sirolimus Current Visit: No (3) Thrombocytopenia Status: Acute Assessment and plan: resolving Current Visit: Yes (4) Idiopathic pulmonary fibrosis Status: Acute Assessment and plan: Status post lung transplant. cont sirolimus and mycophenolate Current Visit: Yes (5) Unsteady gait Status: Acute Assessment and plan: cont pt Current Visit: Yes (6) Congestive heart failure Status: Acute Assessment and plan: EF 40-45%, worsening renal function, d/c lasix Current Visit: Yes Hospitalist: Subjective Interval history: Continue rehab. Patient will get to go home tomorrow. Is been restarted and his sirolimus Exam - Constitutional Vitals: Period Temp Pulse Resp BP Sys/Del Toro Pulse Ox Last 24 Hr 96.5 F-98.6 F 72-92 18-20 114-133/58-97 91-99 Exam: Heart Rate-[RRR] Lungs-[CTAB GI-[+bs soft, NT] Ext-[no edema] Neuro [Motor 5/5], [alert and oriented times 3 ] psych [normal mood and affect] General [no acute distress] Results - Labs CBC & BMP: 01/20/17 04:57 01/20/17 04:57 Lab Results: I have reviewed the past 24 hour labs Quality Measures - VTE Deep Vein Thrombosis/Pulmonary Embolism Present on Admission: No
[2017-01-20] MEDS ORDERED: INSULIN GLARGINE 100 UNIT/ML SUBCUT SCH (21:00)
[2017-01-20] MEDS: ATORVASTATIN 40 MG TABLET PO SCH (21:16)
--- NOTE | 2017-01-21 08:18 | Pulmonology Progress Note ---
Pulmonary - PN: Subj Interval history: This 71-year-old white male is a patient that I followed for a number of years with a previous right lung transplant. He is chronically on immunosuppressant drugs. He came in with fever of 102 and patchy infiltrates primarily in the right lung. He has severe fibrosis in his remaining [place] left long. He also had signs of pulmonary edema, and elevated BNP of 560, and mild systolic congestive heart failure with ejection fraction of 40-45%. I think he is still a little ahead on fluid. Will bump with Lasix. He does have a history of hyponatremia in the past so we will have to watch that closely. I think steroid should be added for his acute pneumonia especially with likely adrenal suppression. Will recheck x-rays in the morning. 01/18/2017 patient is afebrile. He is confused. Chest x-ray is pending. Oxygen saturations look better. I will decrease his steroids as some of the confusion may be related to that. Neurology has seen him. He had both pneumonia and congestive heart failure. He is an immunocompromised host. He needs IV antibiotics longer. His mental status needs to improve before planned for discharge as well. 01/19/2017 patient is less confused today. He was able to describe walking with physical therapy in the waiting area outside his room. He relates that he lives alone with his 2 parents. He normally is able to go to the grocery store and tack picker easily to cook items. He does need a little more physical therapy to get back to that level. He has been on 5 days of IV antibiotics. In my opinion he needs 2 more days. He certainly is immunocompromised from the CellCept and sirolimus that he has been on. His mental status has improved since I reduced his prednisone. I think the higher dose Solu-Medrol was causing some delirium. We could shoot for a Tuesday discharge. 01/20/2017 reviewing his medications I note that he is not on his usual dose of Lantus at bedtime. He is normally on about 50 units each night. I will resume it at 30 units so not to overshoot. His blood sugars have continued to be high in part due to the steroids. This may be causing some of his confusion. He should complete antibiotics and be ready for discharge tomorrow. I will see him back in the office. 01/21/17 patient has about reached his baseline situation. Chest x-ray shows his right lung to be clear. The left lung is end-stage IPF. Should be ready for discharge. Would taper his prednisone back to his home dose over the next few days. That would be 5 mg daily. Exam (Progress Note) - Constitutional Vitals: Period Temp Pulse Resp BP Sys/Del Toro Pulse Ox Last 24 Hr 96.5 F-97.7 F 65-101 16-20 102-128/70-88 91-96 Exam: He is afebrile and alert. He is not confused, but does take a while to answer questions. Vital signs normal. Pupils react to light. Throat is clear. Neck supple no bruits. Chest shows rales about longterm up on the left. Right lung sounds essentially clear. Heart normal rate and rhythm no murmurs no rubs no gallops. Abdomen soft nontender no masses. Bowel sounds present. Extremities no clubbing cyanosis, has trace edema. Little change from yesterday. Results - Labs CBC & BMP: 01/20/17 04:57 01/20/17 04:57 Lab Results: I have reviewed the past 24 hour labs - Diagnostic Findings Procedure: Chest x-ray: image reviewed by me (Right lung is now clear. That is the transplanted lung. The left long has residual severe end-stage idiopathic pulmonary fibrosis and is unchanged from before.) Assessment and Plan (1) Congestive heart failure Status: Acute Assessment and plan: BNP was 560 on admission. Weight is about stable. Patient has LV ejection fraction 40-45% which would be a mild acute on chronic systolic congestive heart failure. I think we need to diurese him a little. There were areas of groundglass infiltrate in the right lung on CT that may well be pulmonary edema. Of course he certainly has pneumonia as well. His ejection fraction was 40% 2 years ago so this is not new. 01/18/2017 repeat chest x-ray is pending. Hopefully we will see some improvement in the pulmonary edema. 01/19/2017 yesterday's x-ray showed the right lung to be clear now. He has a mild cardiomyopathy and tends to get congestive heart failure when he has other stressors such as fluid overload or pneumonia. 01/20/2017 does not appear to be in failure at present. 01/21/2017 this is much better on current medications. Ready for discharge. Current Visit: Yes (2) Status post lung transplantation Status: Acute Assessment and plan: History of a right lung transplant 10 years ago. He has pulmonary fibrosis in the remaining left lung. His right lung normally looks clear radiographically. The superimposed findings are all acute. I think he had both pneumonia and pulmonary edema on admission. Need repeat chest x-ray tomorrow. 01/18/2017 he is immunocompromised. Has thrombocytopenia of unknown etiology. 01/19/2017 is transplanted lung now appears to be clear. 01/20/2017 has end-stage pulmonary fibrosis in his remaining left lung. Right lung has been transplanted and looks clear after improvement of his pneumonia and congestive heart failure. 01/21/2017 the right long head interstitial infiltrates earlier which have cleared. I think this was primarily congestive heart failure probably also had a superimposed bronchopneumonia. Both have resolved radiographically. Current Visit: No (3) Hyponatremia Status: Acute Assessment and plan: I am cautiously giving him Lasix. Watch sodium. He has had some pretty severe hyponatremia in the past. 01/18/2017 sodium is up to 136 and stable. Did have a good response to Lasix. Recorded weights do not appear accurate. 01/21/2017 sodium 141. Current Visit: Yes (4) Idiopathic pulmonary fibrosis Status: Acute Assessment and plan: This was the underlying cause of his chronic lung disease. His left long has end-stage pulmonary fibrosis. The right lung has thus far been spared since transplant. Hopefully the acute infiltrates will resolve with treatment of pneumonia and congestive heart failure. 01/19/2017 he is not on any particular medicine for the pulmonary fibrosis. The immunosuppressant drugs are for the transplanted lung. His left lung is basically end-stage pulmonary fibrosis. 01/20/2017 this is his underlying lung process that caused the right lung transplant to occur. 01/21/2017 he is followed at the [facility] pulmonary fibrosis clinic every 3 months or so. Remains on sirolimus, CellCept, and prednisone for antirejection drugs. Current Visit: Yes (5) Pneumonia Status: Acute Assessment and plan: Presently on Levaquin and Rocephin. Cultures are negative thus far. I think this is a reasonable combination. Needs to finish at least a full week of these which would be through this coming . 01/18/2017 pneumonia in an immunocompromised host. Need to finish out antibiotics at least through . 01/19/2017 cultures have been negative. Actually needs antibiotics until Tuesday. That would like 7 days of IV meds which under the circumstances of immunocompromise would be indicated. Would keep on oral antibiotics for another 3 days after that. 01/20/2017 this is improved with treatment. Needs another day of IV antibiotics so we will have completed 7 days considering that he has immunocompromised from his sirolimus and CellCept. Also prednisone. 01/21/2017 clinically resolved. Current Visit: Yes
--- NOTE | 2017-01-21 08:41 | XRay Report ---
XR chest 2V Date: 01/21/2017 4:00 AM History: Pneumonia, history of right lung transplant Comparison: 01/18/2017 Technique: PA and lateral chest Findings: Stable cardiomegaly with left subclavian atrioventricular pacemaker. Residual diffuse parenchymal findings in the left lung with shift of the mediastinum to the left. Apparent prior right lung transplant with stable appearing right lung. Degenerative changes are noted. Impression: No significant change in the appearance of the chest when compared to previous exam. Persistent diffuse infiltration in the left lung with underlying interstitial fibrosis. Prior right lung transplant with left subclavian atrioventricular permanent pacemaker. PROCEDURE INTERPRETED AT [facility] DEPARTMENT OF RADIOLOGY Final Report Signed by: Dr. Aury Gomez
[2017-01-21] MEDS: INSULIN REGULAR 100 UNIT/ML SUBCUT SCH ×2 (08:59→11:51)
[2017-01-21] MEDS: MYCOPHENOLATE MOFETIL 250 MG CAPSULE PO SCH (09:00)
[2017-01-21] MEDS: predniSONE 20 MG TABLET PO SCH (09:00)
[2017-01-21] MEDS: RAPAMUNE PO SCH (09:00)
[2017-01-21 09:10] VITALS: BP 138/69
[2017-01-21] MEDS: cefTRIAXone 1,000 MG in SODIUM CHLORIDE 0.9% 100 ML IV SCH (11:52)
[2017-01-21] MEDS: LEVOFLOXACIN INJ 750 MG in PREMIX 1 EACH IV SCH (12:03)
== END 2017-01-21 12:38 | disposition home health service (06) | DRG 871 ==
LOC: EDUNIT# → EDBD → N.ED 16:12 → N.EDINP 18:35 → SUATTDRO 18:35 → N.ICU 20:25 → N.TELEN 01-14 15:18
PROVIDERS: ADMIT Emergency Medicine; ATTEND Internal Medicine

== ENCOUNTER 2017-04-06 09:55 | Inpatient (IN) ==
[2017-04-06] MEDS ORDERED: ONDANSETRON 4 MG/2 ML VIAL IV STA (11:09)
[2017-04-06] MEDS ORDERED: SODIUM CHLORIDE 0.9% 500 ML IV STA (11:09)
[2017-04-06] MEDS ORDERED: MECLIZINE 25 MG TABLET PO STA (11:09)
--- NOTE | 2017-04-06 11:19 | Emergency Department Note ---
Deon Conte Mantricia, am scribing for, and in the presence of, Jameel Baron MD 11:13. Loraine Conte Charles R, MD, personally performed the services described in this documentation, ascribed by Pradeep Chavarria in my presence, and it is both accurate and complete . Arrival - Arrival Chief Complaint: Dizziness Stated Complaint: dizzy and shocking ED Nursing Triage Note: c/o dizzy and shaking all over. pt states when he stands he falls down. onset about a week ago. Mode of Arrival: Wheelchair Limitations: No Limitations Source: Patient Time Seen by Provider: 04/06/17 10:21 - History of Present Illness HPI Narrative: Pt is a 71 y/o white male arriving to ED with c/o intermittent dizziness that onset 2 weeks and ago. He reports that he is unable to walk a distance without almost falling due to the dizziness. He also states that the dizziness is worsened while standing and sitting is a modifying factor. At time of exam, pt denies being dizzy. Pt has a PMHx of HI 10 years ago and HTN. He reports that he does take a daily aspirin. At time of exam, pt's blood pressure is 155/86. He reports no other complaints to ED. Onset (ago): week(s) Consistency: constant Severity: mild Allergies/Adverse Reactions: Allergies Allergy/AdvReac Type Severity Reaction Status Date / Time No Known Allergies Allergy Verified 01/13/17 16:20 Home Medications: Home Medications Medication Instructions Recorded Confirmed Type Aspirin [Ecotrin] 81 mg PO QAM 03/17/15 04/06/17 History Atorvastatin Calcium 40 mg PO BEDTIME 03/17/15 04/06/17 History Ferrous Sulfate 325 mg PO BID 03/17/15 04/06/17 History Mycophenolate Mofetil Cap 500 mg PO TID 03/17/15 04/06/17 History [Cellcept] Sirolimus 1 mg PO BID 03/17/15 04/06/17 History Venlafaxine HCl 75 mg PO BEDTIME 03/17/15 04/06/17 History Magnesium Oxide 1,000 mg PO BID 01/13/17 04/06/17 History predniSONE TAB [PredniSONE] 5 mg PO QAM #45 tablet 01/21/17 04/06/17 Rx Insulin Aspart [NovoLOG] 10 unit SUBCUT TID W/MEALS PRN 04/06/17 04/06/17 History Insulin Glargine [Lantus] 50 unit SUBCUT BEDTIME 04/06/17 04/06/17 History Pregabalin [Lyrica] 100 mg PO BID 04/06/17 04/06/17 History Review of System - Review of System 12 point system: reviewed and no additional remarkable complaints except as stated - Review of System Constitutional: Absent: chills, diaphoresis, fever Gastrointestinal: Absent: abdominal pain, nausea, vomiting, diarrhea Musculoskeletal: Absent: arm pain, back pain Neurological: Present: vertigo. Absent: headache, weakness Medical,Surgical,& Family Hx - Medical History Cardio: History of: Hypertension, [place], Pacemaker Psychological: History of: Depression HEENT: History of: Eye Problem, Glaucoma Endocrine: History of: Diabetes Mellitus (IDDM) Respiratory: History of: Obstructive Sleep Apnea, Respiratory Problems ( PULMONARY FIBROSIS) Renal: History of: Renal Failure Gastrointestinal: History of: GERD Musculoskeletal: History of: Back/Neck Problems (spinal stenosis) Other: History of: Cancer (SKIN CANCERS) - Surgical History Cardiac Surgeries: Sugical HX of: Cardiac Catheterization (STENTS PLACED 2006) Thoracic Surgeries: Surgical HX of;: Organ Transplant (LUNG TANSPLANT IN 2006), Lobectomy Neurologic Surgeries: Patient denies: Neurologic Surgery HEENT Surgeries: Patient denies: Tonsilectomy & Adenoidectomy Abdominal Surgeries: Surgical HX of: Colonoscopy Patient denies: Appendectomy, Cholecystectomy Reproductive Surgeries: Patient denies;: Breast Surgery, Vasectomy - Family History Family History: Reports;: Family Diabetes, Family Heart Disease (father, brother , sister), Family Hypertension Denies;: Family Cancer, Family Stroke - Social History Smoking Status: Former smoker Frequency of Alcohol Use: None Type of Drug Use: None Exam Vital Signs: Vital Signs Temperature 97.9 F 04/06/17 09:58 Pulse Rate 96 H 04/06/17 12:16 Respiratory Rate 18 04/06/17 12:16 Blood Pressure 167/91 04/06/17 12:16 O2 Sat by Pulse Oximetry 100 04/06/17 12:16 - General General appearance: alert, in no apparent distress - Head Head exam: Present: atraumatic, normocephalic, normal inspection - Eye Eye exam: Present: normal appearance, PERRL, EOMI - ENT ENT exam: Present: normal exam, normal oropharynx, mucous membranes moist, TM's normal bilaterally, normal external ear exam - Neck Neck exam: Present: normal inspection, full ROM, trachea midline. Absent: tenderness - Chest Chest inspection: Present: normal inspection, symmetric chest wall rise. Absent : tenderness - Respiratory Respiratory exam: Present: normal lung sounds bilaterally - Cardiovascular Cardiovascular exam: Present: regular rate, normal rhythm, normal heart sounds - Abdominal Exam Abdominal exam: Present: soft, normal bowel sounds. Absent: distention, tenderness, guarding, rebound - Extremities Exam Extremities exam: Present: normal inspection, full ROM, normal capillary refill. Absent: tenderness, pedal edema - Back Exam Back exam: Present: normal inspection, full ROM. Absent: tenderness - Neurological Exam Neurological exam: Present: alert, oriented X3, CN II-XII intact, normal gait, reflexes normal - Psychiatric Psychiatric exam: Present: normal affect, normal mood - Skin Skin exam: Present: warm, dry, intact, mottled Course - Consultations Consultation #1: Dr. Alarcon will admit patient Time: 13:54 Results - Labs CBC & BMP: 04/06/17 10:43 04/06/17 10:43 Lab Results: I have reviewed the patients labs - Diagnostic Findings Procedure: Chest x-ray: report reviewed by me (No significant changes.), CT: report reviewed by me (Head: No evidence of acute process or interval change.) Disposition Clinical Impression: Benign paroxysmal positional vertigo, Generalized weakness, Orthostatic hypotension, Near syncope Case discussed with: patient, patient's family Disposition: Still a Patient Condition: Stable Time of Disposition: 13:55 NIH Stroke Score - Stroke Score Initial Assessment Level of Consciousness: Alert Level of Consciousness Questions: Answers Both Correctly Level of Consciousness Commands: Obeys Both Correctly Best Gaze: Normal Visual Nguyen: No Visual Loss Facial Palsy: Normal Motor - Right Arm: No Drift Motor - Left Arm: No Drift Motor - Right Leg: No Drift Motor - Left Leg: No Drift Limb Ataxia: Absent Sensory (Pin Prick): Normal Best Language: Normal Dysarthria: Normal Extinction / Inattention (Neglect): No Neglect NIH Stroke Score: 0
--- NOTE | 2017-04-06 11:22 | EKG Report ---
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
[2017-04-06 11:31] LABS: Basophils % 0.2 % (0.0-0.8); Eosinophils % 0.7 % (0.00-10.9); Hematocrit 37.5 VOL% (42.0-52.0); Immature Granulocytes % 0.3 %; Immature Granulocytes Absolute 0.02 #; Lymphocytes # 1.5 10*3/uL (1.4-4.0); Mean Corpuscular Hemoglobin 27 PG (27-34); Mean Corpuscular Volume 83.5 FL (87-102); Mean Platelet Volume 10.8 FL (9.6-12.0); Monocytes # 0.5 10*3/uL (0.11-0.8); Monocytes % 7.8 % (1.7-12.7); Platelet Count 155 T/CUMM (130-400); Red Blood Count 4.49 MC/CUMM (3.8-5.5); Red Cell Distribution Width 16.2 % (9.3-17.3)
[2017-04-06] MEDS ORDERED: MECLIZINE 25 MG TABLET ONE (11:35)
[2017-04-06] MEDS ORDERED: ONDANSETRON 4 MG/2 ML VIAL ONE (11:35)
[2017-04-06 11:36] LABS: PT Patient Result 11.1 SECS
--- NOTE | 2017-04-06 11:39 | XRay Report ---
XR chest 1V portable Indication: Shortness of breath Comparison: 21 Jan 2017 Findings: The heart and mediastinum are similar in size and configuration with mediastinal shift to the left. Pacemaker device is unchanged in position. The pulmonary vascularity is normal in caliber. There is loss of lung volume on the left with increased interstitial pulmonary density similar to previous study. No other lung infiltrates, effusions, pneumothorax or other abnormality is demonstrated. Impression: No significant changes. PROCEDURE INTERPRETED AT [facility] DEPARTMENT OF RADIOLOGY Final Report Signed by: Dr. Suman Osuna
[2017-04-06 11:40] LABS: Albumin 2.7 G/DL (3.4-5.0); Bilirubin,Total 0.4 MG/DL (0.2-1.0); Calcium 8.9 MG/DL (8.5-10.1); Total Protein 7.7 G/DL (6.4-8.3)
[2017-04-06 11:41] LABS: Magnesium 2.1 MG/DL (1.8-2.4); Troponin I Only 0.028 NG/ML (0.00-0.045)
--- NOTE | 2017-04-06 12:14 | CT Report ---
CT brain Indication: Vertigo Comparison: 13 Jan 2017 Technique: Axial CT imaging of the brain is performed without contrast with 3 mm increments. Findings: No evidence of hemorrhage, mass mass effect midline shift or acute infarct seen. There is moderate diffuse cerebral atrophy. There are areas of decreased density seen within the white matter. Otherwise the brain parenchyma attenuation and differentiation appears within normal limits. The ventricles and cisterns are normal in caliber. No cranial or skull base abnormality is identified. Impression: No evidence of acute process or interval change. This CT exam was performed using one or more the following dose reduction techniques: Automated exposure control, adjustment of the MA and/or KV according to patient size, or use of iterative reconstruction technique. PROCEDURE INTERPRETED AT [facility] DEPARTMENT OF RADIOLOGY Final Report Signed by: Dr. Suman Osuna
[2017-04-06] MEDS ORDERED: FUROSEMIDE 40 MG/4 ML VIAL IV STA (12:53)
[2017-04-06] MEDS ORDERED: FUROSEMIDE 40 MG/4 ML VIAL ONE (13:40)
[2017-04-06 13:44] LABS: Apearance,Urine CLEAR (Clear); Bilirubin,Urine Negative (Negative); Blood, Urine Negative (Negative); Glucose,Urine (UA) >=500 mg/dL (Negative); Hyaline Casts,Urine 8 /LPF (0-3); Ketones,Urine Negative (Negative); Mucus,Urine Occasional /LPF (Occasional); Nitrite,Urine Negative (Negative); Protein,Urine 30 MG/DL; RBC,Urine 1 /HPF (0-4); Urine Color Yellow (Yellow); Urine Specific Gravity 1.016 (1.001-1.035); Urine Urobilinogen < 2.0 EU/DL (0.2-1.0); WBC,Urine 1 /HPF (0-6)
[2017-04-06] MEDS ORDERED: DEXTROSE 50% 25 GM/50 ML VIAL IV PRN (17:01)
[2017-04-06] MEDS ORDERED: MORPHINE 2 MG/1 ML SYRINGE IV PRN (17:01)
[2017-04-06] MEDS ORDERED: ACETAMINOPHEN 325 MG TABLET PO PRN (17:01)
[2017-04-06] MEDS ORDERED: GLUCAGON 1 MG VIAL IM PRN (17:01)
[2017-04-06] MEDS ORDERED: ONDANSETRON 4 MG/2 ML VIAL IV PRN (17:01)
--- NOTE | 2017-04-06 17:37 | EKG Report ---
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
[2017-04-06] MEDS: SODIUM CHLORIDE 0.9% 1,000 ML IV SCH (17:49)
[2017-04-06] MEDS: INSULIN REGULAR 100 UNIT/ML SUBCUT SCH ×2 (18:05→20:59)
[2017-04-06] MEDS: INSULIN LISPRO 100 UNIT/ML SUBCUT SCH (18:07)
[2017-04-06] MEDS: ATORVASTATIN 40 MG TABLET PO SCH (20:56)
[2017-04-06] MEDS: MYCOPHENOLATE MOFETIL 250 MG CAPSULE PO SCH (20:56)
[2017-04-06] MEDS: DOCUSATE SODIUM 100 MG CAPSULE PO SCH (20:56)
[2017-04-06] MEDS: FERROUS SULFATE 325 MG TABLET PO SCH (20:56)
[2017-04-06] MEDS: PREGABALIN 100 MG CAPSULE PO SCH (20:56)
[2017-04-06] MEDS: MAGNESIUM OXIDE 400 MG TABLET PO SCH (20:57)
[2017-04-06] MEDS: VENLAFAXINE 75 MG TABLET PO SCH (20:57)
[2017-04-06] MEDS: INSULIN GLARGINE 100 UNIT/ML SUBCUT SCH (20:58)
[2017-04-06] MEDS: ENOXAPARIN 40 MG/0.4 ML SYRINGE SUBCUT SCH (20:58)
[2017-04-06] MEDS ORDERED: SIROLIMUS 1 MG PO SCH (21:00)
[2017-04-07 07:00] LABS: Basophils % 0.2 % (0.0-0.8); Eosinophils # 0.1 10*3/uL (0.0-0.87); Eosinophils % 1.8 % (0.00-10.9); Hematocrit 37.1 VOL% (42.0-52.0); Hemoglobin 12.2 GM/DL (14.0-18.0); Immature Granulocytes % 0.2 %; Immature Granulocytes Absolute 0.01 #; Lymphocytes # 2.1 10*3/uL (1.4-4.0); Lymphocytes % 41.9 % (21.2-54.2); Mean Corpuscular HGB Conc 32.9 GM/DL (32-36); Mean Corpuscular Hemoglobin 27 PG (27-34); Mean Corpuscular Volume 82.4 FL (87-102); Mean Platelet Volume 10.4 FL (9.6-12.0); Monocytes # 0.5 10*3/uL (0.11-0.8); Monocytes % 10.1 % (1.7-12.7); Neutrophils # 2.3 10*3/uL (1.4-7.4); Neutrophils % 45.8 % (38.7-73.9); Platelet Count 138 T/CUMM (130-400); Red Cell Distribution Width 16.5 % (9.3-17.3)
--- NOTE | 2017-04-07 07:21 | EKG Report ---
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
--- NOTE | 2017-04-07 07:29 | Family Practice History&Phys ---
Assessment and Plan (1) Near syncope Status: Acute Assessment and plan: 04/07/2017: Cardiology will be consulted. Prolactin level was ordered and CT brain done in the ER was unremarkable. Patient's permanent pacemaker seems to be working appropriately. Current Visit: Yes History of Present Illness Chief complaint: Near syncopal episodes History of present illness: Mr. Pittman is a 71 year old male Patient is a 71-year-old white male who presents to the emergency room with complaint of near syncope. Patient had been having some orthostatic symptoms when I saw him in the office last week and his metoprolol was held. Patient continued to have episodes and told me he has had 3 episodes of near syncope and collapse in the last 24 hours before admission. Patient states he has no warning when this occurs. He states he only feels this way when he is standing. He has no perceived palpitations and has no chest pain prior to these events. He told me that he does not completely lose consciousness but has noticed some shaking in both arms when he is on the floor. He says his last no more than 10 seconds. He has never had a seizure before to his knowledge. He has no confusion or lethargy after these events. He denies any constitutional symptoms but states he does notice that he is weak when he exerts himself. He denies any discomfort at present states he feels fine as long as he is lying down. He was seen in emergency room and admitted for further evaluation. He had orthostatic vital signs done yesterday that were normal. Home Medications Medication Instructions Recorded Confirmed Type Aspirin [Ecotrin] 81 mg PO QAM 03/17/15 04/06/17 History Atorvastatin Calcium 40 mg PO BEDTIME 03/17/15 04/06/17 History Ferrous Sulfate 325 mg PO BID 03/17/15 04/06/17 History Mycophenolate Mofetil Cap 500 mg PO TID 03/17/15 04/06/17 History [Cellcept] Sirolimus 1 mg PO BID 03/17/15 04/06/17 History Venlafaxine HCl 75 mg PO BEDTIME 03/17/15 04/06/17 History Magnesium Oxide 1,000 mg PO BID 01/13/17 04/06/17 History Insulin Aspart [NovoLOG] See Protocol SUBCUT TID W/MEALS 04/06/17 04/06/17 History Insulin Glargine [Lantus] 50 unit SUBCUT BEDTIME 04/06/17 04/06/17 History Pregabalin [Lyrica] 100 mg PO BID 04/06/17 04/06/17 History Allergies Allergy/AdvReac Type Severity Reaction Status Date / Time No Known Allergies Allergy Verified 01/13/17 16:20 - Constitutional Constitutional: Present: fatigue. Absent: chills, fever(s), weakness, weight gain, weight loss - EENT Eyes: Absent: blurry vision, loss of vision Ears: Absent: decreased hearing, ear pain Nose, mouth and throat: Absent: hoarseness, nasal congestion, sinus pressure, sore throat - Cardiovascular Cardiovascular: Present: lightheadedness. Absent: chest pain at rest, chest pain with activity, diaphoresis, dyspnea, dyspnea on exertion, orthopnea, palpitations, PND - Respiratory Respiratory: Absent: cough, dyspnea on exertion, wheezing - Gastrointestinal Gastrointestinal: Absent: abdominal pain, diarrhea, dyspepsia, dysphagia, hematemesis, hematochezia, melena, nausea, vomiting - Genitourinary Genitourinary: Absent: dysuria, nocturia, urinary frequency, urinary incontinence - Musculoskeletal Musculoskeletal: Absent: arthralgias, back pain - Neurological Neurological: Present: as per HPI, convulsions, frequent falls, syncope (Near syncope). Absent: confusion, disequilibrium, dizziness, focal weakness, numbness, paresthesias - Psychiatric Psychiatric: Absent: anxiety, confusion, depression - Endocrine Endocrine: Present: fatigue. 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.) Renal: History of: Renal Failure Gastrointestinal: History of: GERD Musculoskeletal: History of: Back/Neck Problems (spinal stenosis) Other: History of: Cancer (SKIN CANCERS) - Surgical History Cardiac Surgeries: Sugical HX of: Cardiac Catheterization (STENTS PLACED 2006) Thoracic Surgeries: Surgical HX of;: Organ Transplant (LUNG TANSPLANT IN 2006), Lobectomy Neurologic Surgeries: Patient denies: Neurologic Surgery HEENT Surgeries: Patient denies: Tonsilectomy & Adenoidectomy Abdominal Surgeries: Surgical HX of: Colonoscopy Patient denies: Appendectomy, Cholecystectomy Reproductive Surgeries: Patient denies;: Breast Surgery, Vasectomy - Family History Family History: Reports;: Family Diabetes, Family Heart Disease (father, brother , sister), Family Hypertension Denies;: Family Cancer, Family Stroke - Social History Smoking Status: Former smoker Frequency of Alcohol Use: None Type of Drug Use: None Exam - Constitutional Vitals: Period Temp Pulse Resp BP Sys/[place] Pulse Ox Last 24 Hr 97.8 F-99.4 F 68-102 17-20 101-189/64-103 95-100 Exam: General: Objective patient is a well-developed articular white male in no acute distress. Patient is able give an excellent history and follows commands accurately. HEENT: Pupils equal and reactive to light. Patent nares and airway Neck: No meningismus, adenopathy, thyromegaly. There are no auscultated carotid bruits. Cardiovascular: Regular rhythm. No murmurs or gallops Chest: Clear to auscultation without rales rhonchi wheezes. Abdomen: Soft nontender to palpation No masses, rebound, guarding or tenderness. Neuro: Cranial nerves intact and DTRs and strength symmetric in all extremities. Dermatologic: No evidence of abnormal lesions or masses. Musculoskeletal: There is no joint swelling or tenderness or deformity. Extremities: Is no calf swelling or tenderness. Results - Labs CBC & BMP: 04/07/17 05:52 04/06/17 10:43 Lab Results: I have reviewed the past 24 hour labs - EKG EKG results: sinus rhythm (68 bpm, permanent pacemaker function noted.), no acute changes - Diagnostic Findings Procedure: CT: report reviewed by me (CT brain showed no acute abnormality.)
[2017-04-07 07:30] LABS: Albumin 2.7 G/DL (3.4-5.0); Bilirubin,Total 0.5 MG/DL (0.2-1.0); Calcium 8.1 MG/DL (8.5-10.1); Magnesium 2.1 MG/DL (1.8-2.4); Total Protein 6.8 G/DL (6.4-8.3)
[2017-04-07 07:31] LABS: Osmolality,Calculated 282.4 MOS/KG (273-304); Potassium 3.6 MMOL/L (3.5-5.1); Risk Ratio 4.38; VLDL CHOLESTEROL 44.6 MG/DL
[2017-04-07 08:12] LABS: Troponin I Only 0.047 NG/ML (0.00-0.045)
--- NOTE | 2017-04-07 08:42 | XRay Report ---
Exam: XR chest 1V Date: 04/07/2017 4:00 AM Indication: Shortness of breath Comparison: 04/06/2017 Technical: AP Findings: Left-sided cardiac pacing device is present. Patchy interstitial densities are present in the left chest with infiltrates and low volume effusion diffusely present in the left lung. The left heart border is partially obscured. External cardiac leads are present. Impression: 1. Persistent infiltrate left lung suggestive of pneumonic infiltrate with stable persistent cardiac pacing device. PROCEDURE INTERPRETED AT [facility] DEPARTMENT OF RADIOLOGY Final Report Signed by: Dr. Cornelio Cope
[2017-04-07] MEDS ORDERED: predniSONE 5 MG TABLET PO SCH (09:00)
[2017-04-07] MEDS: DOCUSATE SODIUM 100 MG CAPSULE PO SCH ×2 (09:50→20:14)
[2017-04-07] MEDS: PREGABALIN 100 MG CAPSULE PO SCH ×2 (09:50→20:16)
[2017-04-07] MEDS: MYCOPHENOLATE MOFETIL 250 MG CAPSULE PO SCH ×3 (09:50→20:14)
[2017-04-07] MEDS: MAGNESIUM OXIDE 400 MG TABLET PO SCH ×2 (09:50→20:15)
[2017-04-07] MEDS: ASPIRIN EC 81 MG TABLET PO SCH (09:50)
[2017-04-07] MEDS: FERROUS SULFATE 325 MG TABLET PO SCH ×2 (09:50→20:14)
[2017-04-07] MEDS: PANTOPRAZOLE 40 MG TABLET PO SCH (09:50)
[2017-04-07] MEDS: INSULIN REGULAR 100 UNIT/ML SUBCUT SCH ×4 (09:54→20:17)
[2017-04-07] MEDS: INSULIN LISPRO 100 UNIT/ML SUBCUT SCH ×3 (09:55→17:46)
[2017-04-07 10:20] LABS: Troponin I Only 0.047 NG/ML (0.00-0.045)
[2017-04-07 13:39] LABS: Troponin I Only 0.041 NG/ML (0.00-0.045)
[2017-04-07 17:13] LABS: Troponin I Only 0.036 NG/ML (0.00-0.045)
[2017-04-07 18:50] LABS: Apearance,Urine CLEAR (Clear); Bilirubin,Urine Negative (Negative); Blood, Urine Negative (Negative); Glucose,Urine (UA) 150 mg/dL (Negative); Ketones,Urine Negative (Negative); Nitrite,Urine Negative (Negative); Protein,Urine 30 MG/DL; RBC,Urine 1 /HPF (0-4); Squamous Epithelial Cell,Urine Occasional /HPF (0-10); Urine Color Yellow (Yellow); Urine Specific Gravity 1.011 (1.001-1.035); Urine Urobilinogen < 2.0 EU/DL (0.2-1.0); WBC,Urine <1 /HPF (0-6)
[2017-04-07] MEDS: SODIUM CHLORIDE 0.9% 1,000 ML IV SCH (19:26)
[2017-04-07] MEDS: ATORVASTATIN 40 MG TABLET PO SCH (20:14)
[2017-04-07] MEDS: VENLAFAXINE 75 MG TABLET PO SCH (20:14)
[2017-04-07] MEDS: ENOXAPARIN 40 MG/0.4 ML SYRINGE SUBCUT SCH (20:16)
[2017-04-07] MEDS: INSULIN GLARGINE 100 UNIT/ML SUBCUT SCH (21:08)
--- NOTE | 2017-04-08 07:47 | Family Practice Progress Note ---
Family Practice - PN: Subj Interval history: Patient states he is feeling well this morning and has had no further presyncope. His orthostatic vital signs are acceptable. Of course his library monitor revealed no significant abnormality. His laboratory studies did not get ordered for some reason on admission. This will be rectified. I am going to stop his IV fluid and asked him to ambulate in the [place]. He may need a implantable monitor. Cardiology will evaluate. Exam (Progress Note) - Constitutional Vitals: Period Temp Pulse Resp BP Sys/[place] Pulse Ox Last 24 Hr 97.2 F-98.2 F 70-87 18-20 98-174/58-95 93-99 Exam: Objective well-developed gentleman in no acute distress. He states is feeling well and not having any chest pain, palpitations or shortness of breath. There is no significant event that is been present on his monitor.. Cardiovascular: Heart rates regular without murmurs or gallops. Respiratory: Lungs clear to auscultation on right. Abdomen: Abdomen soft and nontender to palpation. Neuro: Patient's had no seizure activity Results - Labs CBC & BMP: 04/07/17 05:52 04/07/17 05:52 Lab Results: I have reviewed the past 24 hour labs - EKG EKG results: sinus rhythm (76 bpm with patient activity as well.) - Diagnostic Findings Procedure: Chest x-ray: report reviewed by me (Chronic opacification of left hemithorax.) Assessment and Plan (1) Near syncope Status: Acute Assessment and plan: 04/07/2017: Cardiology will be consulted. Prolactin level was ordered and CT brain done in the ER was unremarkable. Patient's permanent pacemaker seems to be working appropriately. 04/08/2017: Patient's cardiac monitors not shown any significant abnormality. We will DC his IV fluids and allow him to ambulate. Current Visit: Yes
[2017-04-08] MEDS ORDERED: DEXTROSE 50% 25 GM/50 ML SYRINGE IV PRN (08:00)
[2017-04-08] MEDS: INSULIN REGULAR 100 UNIT/ML SUBCUT SCH ×4 (08:36→21:17)
[2017-04-08] MEDS: INSULIN LISPRO 100 UNIT/ML SUBCUT SCH ×3 (09:02→17:06)
[2017-04-08] MEDS: PREGABALIN 100 MG CAPSULE PO SCH ×2 (09:25→21:24)
[2017-04-08] MEDS: MAGNESIUM OXIDE 400 MG TABLET PO SCH ×2 (09:25→21:24)
[2017-04-08] MEDS: FERROUS SULFATE 325 MG TABLET PO SCH ×2 (09:26→21:24)
[2017-04-08] MEDS: DOCUSATE SODIUM 100 MG CAPSULE PO SCH ×2 (09:26→21:24)
[2017-04-08] MEDS: ASPIRIN EC 81 MG TABLET PO SCH (09:26)
[2017-04-08] MEDS: MYCOPHENOLATE MOFETIL 250 MG CAPSULE PO SCH ×3 (09:26→21:24)
[2017-04-08] MEDS: PANTOPRAZOLE 40 MG TABLET PO SCH (09:26)
--- NOTE | 2017-04-08 16:03 | Cardiology Consult Note ---
Magno Conte Vanessa RN, am scribing for, and in the presence of, Kianna Day DO 16 :03. Assessment and Plan - Time spent with patient Time spent with patient: Greater than 30 minutes (Due to assessment, planning, documentation, medication review) (1) Near syncope Status: Acute Current Visit: Yes (2) Hypertension Status: Chronic Assessment and plan: Overall, fairly well-controlled. Continue as present. Adjust antihypertensives as indicated. Current Visit: Yes (3) Hyperlipidemia Status: Chronic Assessment and plan: Continue statin. Current Visit: Yes (4) History of cardiac pacemaker Status: Chronic Assessment and plan: Status post dual-chamber pacemaker implant in 2006 due to carotid sinus syndrome and SA node dysfunction. Most recent pacemaker interrogation on March 14 which revealed appropriate device function. Current Visit: Yes (5) History of coronary artery disease Status: Chronic Assessment and plan: History of acute KS and bare metal stenting of proximal left circumflex in 2006. Stress test and 2014 showed inferolateral scar but no acute ischemia. He is not having any anginal complaint. Continue low-dose ASA, statin. Current Visit: Yes (6) CKD (chronic kidney disease) stage 3, GFR 30-59 ml/min Status: Chronic Assessment and plan: Patient routinely follows with Dr. Osorio for renal dysfunction. Patient does not take an MILAD inhibitor or ARB due to renal dysfunction. Current Visit: Yes (7) Obstructive sleep apnea on CPAP Status: Chronic Assessment and plan: Continue CPAP. Current Visit: Yes (8) GERD (gastroesophageal reflux disease) Status: Chronic Assessment and plan: Continue PPI. Current Visit: Yes (9) History of pulmonary fibrosis Status: Chronic Assessment and plan: Patient is now status post right lung transplant in 2006. Reports he has done well since that time from a pulmonary standpoint. Current Visit: Yes (10) Diabetes mellitus Status: Chronic Assessment and plan: Continue current plan of care. Current Visit: No (11) Status post lung transplantation Status: Acute Assessment and plan: Status post right lung transplant in February 2007 for idiopathic pulmonary fibrosis. Current Visit: No (12) Non-sustained ventricular tachycardia Status: Acute Assessment and plan: add beta ирина. Interrogate device. 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 AMIN Mr. Pittman is a 71 year old white male with risk factor significant for: age, sedentary lifestyle, diabetes, hypertension, family history of CAD, personal previous history of CAD, and he is a former smoker. Past medical history includes obstructive sleep apnea, tuberculosis, pulmonary fibrosis, CKD stage III. Patient had acute inferior KS with subsequent stenting of proximal circumflex in November 2006 in [place]. In February 2007, he underwent dual- chamber pacemaker implant for SA node dysfunction and carotid sinus syndrome at the [facility]. He is also status post right lung transplant due to pulmonary fibrosis in April 2007. Patient had an abnormal but stable exercise stress test April 2014 demonstrating an inferolateral scar but no ischemia, EF 33%. Mr. Pittman was last seen at [facility] on February 16 for routine follow-up. He had recently been hospitalized on January 13 at [facility] with volume depletion secondary to diarrhea, hyponatremia, and worsening of renal failure, and pneumonia. Patient responded well to hydration and antibiotics. Echocardiogram during hospital admission in January showed mild LVH, EF 40-45%, grade 1 diastolic dysfunction, severe dilation LA, moderate pulmonary hypertension with PA pressure 50 mmHg. At time of follow-up visit, patient reported that he still felt weak, "washed out," and easily fatigued. He had no anginal complaint. Pacemaker interrogation clinic on March 14 revealed appropriate function. Patient is now admitted to [facility] after presenting to the ED on April 06 complaining of dizziness and multiple falls for a period of 2 weeks. He reported orthostatic symptoms and that by sitting, he felt better. Prior to presentation that day, he noticed that he was "shaking all over" which prompted his presentation. He had been seen by his PCP Dr. Alarcon in the office a week prior reporting near syncope with orthostatic symptoms. As a result, metoprolol was held. He denies seizure activity. Head CT obtained in ER was unremarkable. He was admitted to the hospital for further observation. Cardiology is consulted for evaluation of near syncope. This certainly sounds like orthostasis but the patient has not tilted. He has been until negative he is also had a few episodes of nonsustained ventricular tachycardia on his monitor. He states that his pacemaker is near [employer] and he is scheduled to be seen home April [address] playback and have his device interrogated. I will ask the [employer] automotive leasing sales representative to interrogate soon as possible. In the meantime I will recommend the addition of a low-dose beta-ирина for his nonsustained VT. Patient seen and examined. He is awake and alert this morning. He is not having any exertional chest pain, dyspnea, or anginal complaint. Upon interview , patient now recalls that he thinks he has been experiencing these episodes of dizziness, near syncope, and falls for little over 2 years now, and he is now confident that this started before his almost 2 years ago. Patient states that he generally "gets up and goes" without sitting up straight briefly prior ambulation. Reports near syncopal episodes generally happen with exertion. They do not occur while he is at rest. He tells me that he knows when he is about to fall, and when he begins to feel leg weakness and dizziness , he generally tries to grab onto something nearby to ease his fall. Denies loss of consciousness. EKG and cardiac monitoring demonstrates sinus rhythm, occasional ventricular pacing, multifocal PACs/PVCs, right bundle branch block. SBP 140-155 mmHg. Review of orthostatic VS shows no significant orthostasis. Labs reviewed. Serial cardiac biomarkers revealed trivial troponin with normal CPK and CK-MB. H&H stable. Electrolytes within normal range. Creatinine 1.4. CC: Pollo Alarcon MD - Home Medications and Allergies Home Medications: Home Medications Medication Instructions Recorded Confirmed Type Aspirin [Ecotrin] 81 mg PO QAM 03/17/15 04/06/17 History Atorvastatin Calcium 40 mg PO BEDTIME 03/17/15 04/06/17 History Ferrous Sulfate 325 mg PO BID 03/17/15 04/06/17 History Mycophenolate Mofetil Cap 500 mg PO TID 03/17/15 04/06/17 History [Cellcept] Sirolimus 1 mg PO BID 03/17/15 04/06/17 History Venlafaxine HCl 75 mg PO BEDTIME 03/17/15 04/06/17 History Magnesium Oxide 1,000 mg PO BID 01/13/17 04/06/17 History Insulin Aspart [NovoLOG] See Protocol SUBCUT TID W/MEALS 04/06/17 04/06/17 History Insulin Glargine [Lantus] 50 unit SUBCUT BEDTIME 04/06/17 04/06/17 History Pregabalin [Lyrica] 100 mg PO BID 04/06/17 04/06/17 History Allergies/Adverse Reactions: Allergies Allergy/AdvReac Type Severity Reaction Status Date / Time No Known Allergies Allergy Verified 01/13/17 16:20 - Constitutional Constitutional: Present: as per HPI - EENT Eyes: Present: as per HPI Ears: Present: as per HPI Nose, mouth and throat: Present: as per HPI - Cardiovascular Cardiovascular: Present: as per HPI - Respiratory Respiratory: Present: as per HPI - Gastrointestinal Gastrointestinal: Present: as per HPI - Genitourinary Genitourinary: Present: as per HPI - Musculoskeletal Musculoskeletal: Present: as per HPI - Neurological Neurological: Present: as per HPI - Psychiatric Psychiatric: Present: as per HPI - Endocrine Endocrine: Present: as per HPI - Hematologic/Lymphatic Hematologic/Lymphatic: Present: as per HPI Medical,Surgical,& Family Hx - Medical History Cardio: History of: Cardiac Dysrhythmia, CAD, Hypertension, KS, Pacemaker Psychological: History of: Depression Neurology: No history of: Cerebrovascular Accident, TIA HEENT: History of: Eye Problem, Glaucoma Endocrine: History of: Diabetes Mellitus (IDDM), Dyslipidemia No history of: Thyroid Disorder Respiratory: History of: Obstructive Sleep Apnea, Pulmonary Hypertension, Respiratory Problems (History of pulmonary fibrosis leading to right lung transplant) No history of: COPD Renal: History of: Renal Failure Genitourinary: History of: Prostate Problems Gastrointestinal: History of: GERD Musculoskeletal: History of: Back/Neck Problems (spinal stenosis) Other: History of: Cancer (SKIN CANCERS) - Surgical History Cardiac Surgeries: Sugical HX of: Cardiac Catheterization (STENTS PLACED 2006) Thoracic Surgeries: Surgical HX of;: Organ Transplant (Right LUNG TANSPLANT IN 2006), Lobectomy Neurologic Surgeries: Patient denies: Neurologic Surgery HEENT Surgeries: Patient denies: Tonsilectomy & Adenoidectomy Abdominal Surgeries: Surgical HX of: Colonoscopy Patient denies: Appendectomy, Cholecystectomy Reproductive Surgeries: Patient denies;: Breast Surgery, Vasectomy - Family History Family History: Reports;: Family Diabetes, Family Heart Disease (father, brother , sister), Family Hypertension Denies;: Family Cancer, Family Stroke - Social History Smoking Status: Former smoker Time spent discussing smoking cessation with patient: more than 10 minutes Frequency of Alcohol Use: None Type of Drug Use: None Marital Status: Lives With:: Alone Functional capacity: independent ambulation Physical Examination Vital Signs Temp Pulse Resp BP Pulse Ox 97.9 F 76 18 101/64 100 04/06/17 09:58 04/06/17 09:58 04/06/17 09:58 04/06/17 09:58 04/06/17 09:58 General: Present: No Apparent Distress, Other (Disheveled appearance) HEENT: Present: PERRL, Mucus Membranes Dry, Other (Poor dentition). Absent: Pallor, Mucus Membranes Moist Neck: Present: Supple Neck, Midline Trachea, No JVD/HJR, Bruit (Left carotid) Cardiac: Present: Reg Rate and Rhythm, No Murmur. Absent: Tachycardia, Bradycardia Lungs: Present: Clear Ascult./Percussion, No Wheeze, Rales, Rhonchi. Absent: Oxygen Neuro: Present: Grossly Intact. Absent: Numbness, Tingling, Resting Tremor, Essential Tremor Abdomen: Present: Soft, Active Bowel Sounds. Absent: Ascites, Tender, Firm Skin: Present: Clear. Absent: Rash, Suspicious Lesions, Bruising Extremities: Present: No Clubbing, No Cyanosis, No Edema, Normal Upper Extr. Pulses (3+ bilaterally), Normal Lower Extr. Pulses (3+ bilaterally), Capillary Refill (Normal), Other (Warm, dry) Result/EKG - Labs CBC & BMP: 04/07/17 05:52 04/07/17 05:52 Lab Results: I have reviewed the past 24 hour labs Labs: Laboratory Results - last 24 hr 04/07/17 04/07/17 04/07/17 05:52 07:18 07:18 POC Glucose Total Creatine Kinase 142 CK-MB (CK-2) 2.4 Troponin I 0.047 H D B-Natriuretic Peptide 828 H Prolactin 6.4 Urine Color Urine Appearance Urine pH Ur Specific [place] Urine Protein Urine Glucose (UA) Urine Ketones Urine Blood Urine Nitrate Urine Bilirubin Urine Urobilinogen Urine Leukocytes Urine RBC Urine WBC Ur Squamous Epith Cells Ur Culture Indicated? 04/07/17 04/07/17 04/07/17 09:30 11:50 12:59 POC Glucose 156 H Total Creatine Kinase 125 123 CK-MB (CK-2) 2.6 2.3 Troponin I 0.047 H 0.041 B-Natriuretic Peptide Prolactin Urine Color Urine Appearance Urine pH Ur Specific [place] Urine Protein Urine Glucose (UA) Urine Ketones Urine Blood Urine Nitrate Urine Bilirubin Urine Urobilinogen Urine Leukocytes Urine RBC Urine WBC Ur Squamous Epith Cells Ur Culture Indicated? 04/07/17 04/07/17 04/07/17 16:04 17:00 17:35 POC Glucose 275 H Total Creatine Kinase 112 CK-MB (CK-2) 1.8 Troponin I 0.036 B-Natriuretic Peptide Prolactin Urine Color Yellow Urine Appearance Clear Urine pH 6.0 Ur Specific [place] 1.011 Urine Protein 30 Urine Glucose (UA) 150 Urine Ketones Negative Urine Blood Negative Urine Nitrate Negative Urine Bilirubin Negative Urine Urobilinogen < 2.0 H Urine Leukocytes Negative Urine RBC 1 Urine WBC <1 Ur Squamous Epith Cells Occasional Ur Culture Indicated? Not indicated 04/07/17 04/08/17 04/08/17 19:38 00:41 01:19 POC Glucose 279 H 70 L 117 H Total Creatine Kinase CK-MB (CK-2) Troponin I B-Natriuretic Peptide Prolactin Urine Color Urine Appearance Urine pH Ur Specific [place] Urine Protein Urine Glucose (UA) Urine Ketones Urine Blood Urine Nitrate Urine Bilirubin Urine Urobilinogen Urine Leukocytes Urine RBC Urine WBC Ur Squamous Epith Cells Ur Culture Indicated? 04/08/17 06:04 POC Glucose 125 H Total Creatine Kinase CK-MB (CK-2) Troponin I B-Natriuretic Peptide Prolactin Urine Color Urine Appearance Urine pH Ur Specific [place] Urine Protein Urine Glucose (UA) Urine Ketones Urine Blood Urine Nitrate Urine Bilirubin Urine Urobilinogen Urine Leukocytes Urine RBC Urine WBC Ur Squamous Epith Cells Ur Culture Indicated? - Diagnostic Findings Procedure: Chest x-ray: image reviewed by me, report reviewed by me - EKG EKG results: interpreted by me, no acute changes (Intermittent ventricular paced ; sinus rhythm with PAC/PVC) I, Kianna Day, DO, personally performed the services described in this documentation, ascribed by Annie Kiran RN in my presence, and it is both accurate and complete 603 .
[2017-04-08] MEDS: METOPROLOL SUCCINATE XL 25 MG TABLET PO SCH (17:00)
[2017-04-08] MEDS: INSULIN GLARGINE 100 UNIT/ML SUBCUT SCH (21:17)
[2017-04-08] MEDS: ENOXAPARIN 40 MG/0.4 ML SYRINGE SUBCUT SCH (21:24)
[2017-04-08] MEDS: ATORVASTATIN 40 MG TABLET PO SCH (21:24)
[2017-04-08] MEDS: VENLAFAXINE 75 MG TABLET PO SCH (21:24)
--- NOTE | 2017-04-09 07:25 | Discharge Summary ---
Hospital Course - Hospital Course Hospital Course: Patient 72-year-old white male admitted through the emergency room with recurring episodes of near syncope. Patient would fall to the floor without warning and he stated he noticed that his arms were flailing about on the last several episodes. He did not lose consciousness and had no lethargy or confusion after these episodes. Patient states he would have absolutely no warning of these events. Orthostatic vital signs were obtained which revealed no acute abnormality. He does have a history of permanent pacemaker placement and was seen in consultation by Dr. Kianna Day. Patient will be referred to the office and get interrogation of his pacemaker. Patient was anxious for discharge today and if cardiology agrees we will discharge him today. Diagnosis - Discharge Diagnosis (1) Near syncope Status: Acute Discharge Plan - Discharge Data Disposition: Disch To Home/Self Care Condition at Discharge: Stable Discharge Diet: diabetic diet Activity: resume usual activities as tolerated Hygiene: no restrictions Weight Bearing at Discharge: full weight bearing Driving: no restrictions Contact your physician if you experience:: fever over 101 - Discharge Medications New Metoprolol Succinate Xl [Toprol Xl] 25 mg PO DAILY #30 tablet Continue Atorvastatin Calcium 40 mg PO BEDTIME Mycophenolate Mofetil Cap [Cellcept] 500 mg PO TID Ferrous Sulfate 325 mg PO BID Venlafaxine HCl 75 mg PO BEDTIME Sirolimus 1 mg PO BID Aspirin [Ecotrin] 81 mg PO QAM Magnesium Oxide 1,000 mg PO BID Pregabalin [Lyrica] 100 mg PO BID Insulin Aspart [NovoLOG] See Protocol SUBCUT TID W/MEALS Insulin Glargine [Lantus] 50 unit SUBCUT BEDTIME - Follow Up or Referral Follow Up: Joshua Mathew MD [Physician] - 1 Week Pollo Alarcon MD [Physician] - 1 Month - Forms/Instructions Exam - Constitutional Vitals: Period Temp Pulse Resp BP Sys/[place] Pulse Ox Last 24 Hr 97.3 F-98.7 F 74-88 18-20 72-154/41-95 96-98 Exam: Objective well-developed gentleman in no acute distress. He states is feeling well and not having any chest pain, palpitations or shortness of breath. There is no significant event that is been present on his monitor.. Cardiovascular: Heart rates regular without murmurs or gallops. Respiratory: Lungs clear to auscultation on right. Abdomen: Abdomen soft and nontender to palpation. Neuro: Patient's had no seizure activity Discharge Results Labs on day of discharge: Labs from last 24 hours 04/08/17 04/08/17 04/08/17 20:13 16:49 15:36 POC Glucose 206 H 48 L* 75 Magnesium 04/08/17 04/08/17 04/08/17 11:11 08:08 06:58 POC Glucose 249 H 102 Magnesium 2.2 DS: Provider Date of admission: 04/06/17 13:55 Primary care physician: . No PCP Attending physician on admission: Pollo Alarcon MD Consults: 04/06/17 17:01 Consult to Case Mgmt/Social Srvs [CONS] Routine Reason for Case Mgmt/Social Srvs: Discharge Planning 04/07/17 16:47 Consult to Physician [CONS] Routine Comment: Consulting Provider: Cardiology - [facility] Person Notified: [email or web address] Date Notified: 04/08/17 Time Notified: 07:37 Discharging clinician: Pollo Alarcon MD Expected date of discharge: 04/09/17
[2017-04-09] MEDS: MYCOPHENOLATE MOFETIL 250 MG CAPSULE PO SCH (08:49)
[2017-04-09] MEDS: METOPROLOL SUCCINATE XL 25 MG TABLET PO SCH (08:49)
[2017-04-09] MEDS: PREGABALIN 100 MG CAPSULE PO SCH (08:50)
[2017-04-09] MEDS: INSULIN REGULAR 100 UNIT/ML SUBCUT SCH ×2 (08:50→11:30)
[2017-04-09] MEDS: ASPIRIN EC 81 MG TABLET PO SCH (08:50)
[2017-04-09] MEDS: DOCUSATE SODIUM 100 MG CAPSULE PO SCH (08:50)
[2017-04-09] MEDS: MAGNESIUM OXIDE 400 MG TABLET PO SCH (08:50)
[2017-04-09] MEDS: PANTOPRAZOLE 40 MG TABLET PO SCH (08:50)
[2017-04-09] MEDS: FERROUS SULFATE 325 MG TABLET PO SCH (08:50)
[2017-04-09] MEDS: INSULIN LISPRO 100 UNIT/ML SUBCUT SCH ×2 (08:51→12:00)
[2017-04-09 09:32] VITALS: BP 116/70
== END 2017-04-09 11:56 | disposition home or self-care (01) | DRG 312 ==
LOC: N.ED 09:55 → N.EDINP 13:55 → N.2E 16:26
PROVIDERS: ADMIT Family Medicine; ATTEND Family Medicine